=== PATIENT | male | born 1980 | race American Indian/Alaskan Native ===

== ENCOUNTER 2019-03-25 12:22 | Inpatient (IN) | payer OTHER ==
[~2019-03-25] VITALS: Ht 177.8 cm; Wt 122.0 kg
[2019-03-25] MEDS ORDERED: GLUCOPHAGE500 MG PO (15:56)
[2019-03-25] MEDS ORDERED: VITAMIN D1000 UNIT PO (15:56)
[2019-03-25] MEDS ORDERED: SYNTHROID25 MCG PO (16:14)
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
--- NOTE | 2019-03-25 18:00 | NUR ---
WOUND CULT SENT TO LAB. WISHES TO HOLD ON DINNER AT THIS TIME. ACCUCHECK-200. HUMOLOG INSULIN 3 UNITS SQ GIVEN. KCL PO GIVEN W/O PROBLEMS. BROOKS CATH PATENT WITH MARK URINE NOTE. RECIEVING LR BOLUS.
--- NOTE | 2019-03-25 19:41 | NUR ---
REPORT TO NEXT SHIFT. TURNED TO RIGHT SIDE.
--- NOTE | 2019-03-25 20:00 | NUR ---
SHIFT REPORT RECEIVED FROM RYAN HDZ. PT IS CURRENTLY RESTING IN BED AND WATCHING TV. PT IS PARAPLEGIC WITH MINIMAL USE OF UPPER EXTREMITIES, THEREFORE BABY MONITOR IS NEXT TO BED SO THAT PT CAN SPEAK TO NURSES' STATION SINCE HE IS UNABLE TO PUSH CALL LIGHT. PT DENIES NEEDS AT THIS TIME.
--- NOTE | 2019-03-25 20:45 | NUR ---
CB, NO SLIDING SCALE REQUIRED AT THIS TIME. PT FED HIS DINNER OF STEAK, RICE, AND GREEN BEANS, ATE ~90%, TOLERATED WELL.
--- NOTE | 2019-03-25 21:15 | NUR ---
ASSESSMENT COMPLETED. PT HAS ORAL TEMP OF 100.8, PRN TYLENOL PROVIDED. PT DEMONSTRATED I.S. USE. BROOKS CARE COMPLETED, URINE OUTPUT QUANTITY SUFFICIENT. IV SITES WNL, PATENT. OFFERED TO REPOSITION PT, HE DECLINED AT THIS TIME. ALLEVYN DRESSINGS TO WOUNDS ON BUTTOCKS. NO REQUESTS AT THIS TIME.
--- NOTE | 2019-03-25 22:27 | NUR ---
PT REPOSITIONED ONTO LEFT SIDE WITH PILLOW SUPPORT. PT REPORTS FEELING HOT, BLANKETS REMOVED PER REQUEST. ROOM TEMP DECREASED. COOL WASH CLOTH APPLIED TO FOREHEAD AND ICE PACKS PLACED UNDER ARMS. PT PROVIDED WITH DRINK OF ICED TEA. NO FURTHER REQUESTS AT THIS TIME.
--- NOTE | 2019-03-26 00:15 | NUR ---
ASSESSMENT COMPLETED, NO CHANGES FROM PREVIOUS. VANCO INFUSION STARTED. IV SITES INTACT, INFUSING WNL. SNACK PROVIDED PER REQUEST, CRACKERS AND PUDDING. OFFERED TO REPOSITION PT, DECLINED AT THIS TIME AND WILL LET ME KNOW WHEN HE'S READY TO BE MOVED. BROOKS PATENT, URINE APPEARS SLIGHTLY CLOUDY WITH SOME SEDIMENT NOTED. PT EXPRESSES WISHES TO BE STARTED ON PROBIOTIC, WILL LEAVE MESSAGE FOR DR. UNGER, OR SPEAK TO HIM WHEN APPROPRIATE. NO FURTHER REQUESTS AT THIS TIME.
--- NOTE | 2019-03-26 01:07 | NUR ---
PT REPOSITIONED FURTHER ONTO RIGHT SIDE WITH PILLOW SUPPORT. PT READY FOR BED, LIGHTS DIMMED AND HEAD OF BED LOWERED SLIGHTLY. NO FURTHER REQUESTS AT THIS TIME.
--- NOTE | 2019-03-26 03:21 | NUR ---
DR. UNGER NOTIFIED THAT PT'S BP AND UO HAVE BEEN TRENDING DOWN. NO NEW ORDERS RECEIVED AT THIS TIME, WILL CONTINUE TO MONITOR. PT SLEEPING AT THIS TIME, APPEARS COMFORTABLE. RESPIRATIONS EVEN AND UNLABORED, RR:18, HR:75.
--- NOTE | 2019-03-26 04:50 | NUR ---
PT CONTINUES TO SLEEP, DOES NOT APPEAR TO BE IN ANY DISTRESS. RESPIRATIONS EVEN AND UNLABORED, RR:17, HR:79, SPO2:94% ON RA. BROOKS PATENT. IVF INFUSING WNL. WILL ALLOW FOR REST AND CONTINUE TO MONITOR.
--- NOTE | 2019-03-26 05:30 | NUR ---
PT CALLED AND REQUESTED TO BE REPOSITIONED. TURNED ONTO RIGHT SIDE WITH PILLOW SUPPORT. EYE MASK PROVIDED PER REQUEST. WATER REFILLED. NO OTHER REQUESTS AT THIS TIME.
--- NOTE | 2019-03-26 07:08 | NUR ---
DR. HODGE IN TO ASSESS PT. PT HAD SMALL AMOUNT OF LIQUID BM PRESENT, SHANAE-CARE PROVIDED. ALLEVYN DRESSINGS REMOVED. NEW ALLEVYN TO RIGHT BUTTOCK. LEFT DECUB WASHED WITH NORMAL SALINE, LIGHTLY PACKED WITH SALINE SOAKED GAUZE AND COVERED WITH GAUZE AND ABD. PT REPOSITIONED BACK ONTO RIGHT SIDE WITH PILLOW SUPPORT PER REQUEST.
--- NOTE | 2019-03-26 08:10 | NUR ---
PT TEMP IS 102.8, TYLENOL 500 MG PO GIVEN. CALLED TO UPDATE ON FEVER, ORDER GIVEN TO DRAW BLOOD CULTURES X2. ORDER PLACED WITH LAB.
--- NOTE | 2019-03-26 09:01 | NUR ---
IV SITES INTACT, NO REDNESS OR SWELLING NOTED, PT DENIES PAIN AT EITHER SITE, BOTH SITES FLUSH EASILY.
--- NOTE | 2019-03-26 10:07 | NUR ---
PT REPOSITIONED FOR BOWEL REGIME, SUPPOSITORY GIVEN. PT DENIES PAIN, NAUSEA, AND SOB AT THIS TIME. PT ABLE TO HELP SOME WITH REPOSITIONING. PT IS CHEERFUL, ALERT AND ORIENTED. PT DENIES NEED FOR BREAKFAST AT THIS TIME. PT GIVEN SIPS OF FRESH WATER. PT POSITIONED HIGH ON HIS LEFT SIDE PER HIS DESIRE.
--- NOTE | 2019-03-26 11:07 | NUR ---
PT ABLE TO HAVE MED SOFT BM. ALL BED LINENS AND CHUCKS CHANGED.
--- NOTE | 2019-03-26 12:14 | NUR ---
PT GIVEN FULL BED BATH, HAIR SHAMPOOED, BROOKS CATH CARES DONE. CLEAN GOWN IN PLACE, SKIN CARE DONE. PT REFUSED ORAL CARE AT THIS TIME.
--- NOTE | 2019-03-26 12:40 | NUR ---
PT ABLE TO ALINA APPROXIMATLY 50% OF HIS LUNCH. PT REQUIRES ASSISTANCE WITH FEEDING. PT REPORTS LOW APPITITE LATELY, STATES IT IS SLOWLY IMPROVING.
--- NOTE | 2019-03-26 13:22 | NUR ---
IV SITES INTACT, NO REDNESS OR SWELLING NOTED, FLUIDS AND FLUSHES INFUSE EASILY. PT DENIES PAIN, NAUSEA, AND SOB AT THIS TIME, SITTING UP IN BED WATCHING TV.
--- NOTE | 2019-03-26 14:10 | NUR ---
PT REPOSITIONED TO LEFT SIDE PER HIS REQUEST, PILLOWS UNDER BACK, HIPS, AND LEG FOR SUPPORT. PT WATCHING TV AT THIS TIME, ALERT AND ORIENTED X4, DENIES PIAN, NAUSEA, AND SOB.
--- NOTE | 2019-03-26 16:05 | NUR ---
REPORT RECIEVED VIA TELEPHONE.
--- NOTE | 2019-03-26 16:30 | NUR ---
PT ARRIVED TO FLOOR VIA BED. DENEIS PAIN. VSS. AFEBRILE. ORIENTED TO ROOM. LRAT 50ML/HR INFUSING.
--- NOTE | 2019-03-26 16:33 | NUR ---
PT TRANSPORTED TO MED/SURG ROOM 115 WITH ASSISTANCE FROM RYAN ALFARO. ALL PERSONAL BELONGINGS WENT WITH PT, INCLUDING MOTORIZED WHEELCHAIR. FULL REPORT GIVEN TO ANGELINA, ALL QUESTIONS ANSWERED.
--- NOTE | 2019-03-26 16:45 | NUR ---
PT WITH SMALL BM. CHUCKS CHANGED. REPOSITIONS PT TO RIGHT SIDE. WITH 2 PILLOWS UNDER LEFT HIP AND LEFT SHOULDER. PILLOW PLACED BETWEEN LEGS. HEEL PROTECTORS IN PLACE. ALLYVEN TO LEFT GLUTEAL WOUND INTACT WITH SOME SHADOWING. RIGHT GLUTEAL ULCER OPEN TO AIR WITH NO DRAINAGE. SKIN FOLDS ON BODY DRY WITHOUT REDNESS. VOICE MONITOR IN PLACE. DENIES FURTHER NEEDS.
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
--- NOTE | 2019-03-26 19:30 | NUR ---
REPORT RECEIVED, PT RESTING IN BED VISITING WITH FAMILY NO NEEDS AT THIS TIME. VOICE MONITOR IN ROOM.
--- NOTE | 2019-03-26 20:34 | NUR ---
PT'S MOM BROUGHT THE PT THE FOLLOWING PERSONAL ITEMS: CELL PHONE, CELL PHONE CLIENT TECHNICAL SUPPORT ASSOCIATE, AND COMPUTER TABLET.
--- NOTE | 2019-03-26 21:00 | NUR ---
PT REPOSITIONED IN BED, NYSTATIN PLACED UNDER PT'S PANNUS WELL. EVENING MEDS GIVEN. ASSESSMENT COMPLETE. PULSES EQUAL, PT'S LS CLEAR, BT ACTIVE, BROOKS CATH DRAINING WNL. PT DENIES ANY PAIN. DENIES ANY NEEDS AT THIS TIME. MONITOR IN ROOM DUE TO PT'S INABILTY TO USE CALL LIGHT.
--- NOTE | 2019-03-26 22:59 | NUR ---
PT WAS ASSISTED WITH CHICKEN NOODLE SOUP BY CANELO MATA, PT TOLERATED WELL. PT REPOSITIONED IN BED, FLOATED, PT TOLERATED WELL. ALLEVYN ON RIGHT HIP IS INTACT, OPEN SORE ON LEFT HIP DOES NOT APPEAR TO HAVE ANY NEW DRAINAGE. PT WAS NOTED TO BE INCONTINENT OF SMALL STOOL CHUX CHANGED, IV ABX INFUSING PER EMAR WNL. NO FURTHER REQUESTS AT THIS TIME. CALL LIGHT WITHIN REACH.
--- NOTE | 2019-03-27 01:10 | NUR ---
PT STATES THAT HE IS READY FOR BED, PT REPOSITIONED IN BED PER PT'S REQUEST, PT'S CHUX ARE DRY, IV FLUIDS INFUSING PER EMAR WNL. NO FURTHER NEEDS AT THIS TIME, CALL LIGHT WITHIN REACH.
--- NOTE | 2019-03-27 03:00 | NUR ---
PT REPOSITIONED IN BED PER REQUEST, ICE PACKS PROVIDED FOR BEHIND NECK WELL. NO FURTHER NEEDS AT THIS TIME. IV FLUIDS INFUSING PER EMAR WNL. VOICE MONITOR IN ROOM WITH PT.
--- NOTE | 2019-03-27 04:00 | NUR ---
IV VANCO STARTED, PT REPOSITIONED IN BED, ICE PACKS GIVEN FOR COMFORT TO PT'S NECK, PT WAS INCONTINENT OF SMALL STOOL. CHUX CHANGED, NO FURTHER NEEDS AT THIS TIME, VOICE MONITOR IN ROOM.
--- NOTE | 2019-03-27 04:57 | NUR ---
PT AOX4, APPROPRIATE, NO C/O PAIN, PT IS QUADRAPLEGIC, Q2 TURNING, PT INCONTINENT OF STOOL, BROOKS CATH DRAINING WNL. VOICE MONITOR AT NURSES STATION DUE TO PT'S INABILITY TO USE CALL LIGHT. PT HAS BEEN NPO SINCE MIDNIGHT, SCHEDULED SURGERY THIS AM, IV ABX/FLUIDS INFUSED PER EMAR WNL. HEEL PROTECTORS ON.
--- NOTE | 2019-03-27 07:27 | NUR ---
REPORT RECEIVED FROM INSTRUMENT FITTER RN. PT IN BED. VOICE MONITOR AT BEDSIDE.
--- NOTE | 2019-03-27 08:09 | NUR ---
PATIENT RESTING IN BED. PATIENT'S BODY CLEANED WITH SURGICAL WIPES. TWO PERSON ASSISTING. PATIENT USING A CLEAN GOWN. WARM BLANKET PROVIDED. PATIENT REPOSITIONED. CALL LIGHT WITHIN REACH. NO OTHER NEEDS AT THIS TIME
--- NOTE | 2019-03-27 08:16 | NUR ---
REPOSITIONED PT. ABD APPLIED TO LEFT GLUTEAL ULCER.
--- NOTE | 2019-03-27 09:26 | NUR ---
PATIENT RESTING IN BED. I&O DONE. VITAL SIGNS DONE BY RN. CALL LIGHT WITHIN REACH. NO OTHER NEEDS AT THIS TIME
--- NOTE | 2019-03-27 09:39 | NUR ---
PT OFF FLOOR TO SURGERY
--- NOTE | 2019-03-27 09:50 | NUR ---
IV IN R HAND LEAKING AND WONT RUN VERY WELL. DCD AND RESTARTED.
--- NOTE | 2019-03-27 11:22 | NUR ---
03/27/19 1122 Linda Ba 1104- PT ARRIVES TO PACU ALERT AND ORIENTED. RESP EVEN AND UNLABORED. OXYGEN SAT HIGH 90'S TO 100% ON RA. PT REPORTS NO PAIN OR NAUSEA. 1116- PT TURNED TO HIS LEFT SIDE AND PILLOW PLACED UNDER RIGHT HIP WITH ASSISTANCE FROM 3 STAFF MEMBERS. PT TOLERATING WELL.
--- NOTE | 2019-03-27 11:30 | NUR ---
PT ARRIVED VIA BED.PT IS AAO X4. DENIES PAIN. DRESSINGS TO LEFT GLUTEAL WITH ABD C/D/I. RIGHT GLUTEAL ALLYVEN C/D/I. VSS. HEART SOUNDS REGULAR. LUNGS CLEAR.
--- NOTE | 2019-03-27 13:40 | NUR ---
PATIENT IN BED WATCHING TV. I&O DONE. VITAL SIGNS DONE BY THE PRODUCTION TRAINER LESLIE. CALL LIGHT WITHIN REACH. NO OTHER NEEDS AT THIS TIME
--- NOTE | 2019-03-27 14:32 | NUR ---
SPOKE WITH PATIENT IN ROOM. PLAN IS STILL TO RETURN HOME AT DISCHARGE. AT THIS TIME PATIENT WANTS TO RESUME HOME HEALTH THROUGH [facility]. ONLY THING PATIENT CAN THINK OF HE COULD USE TO BE HOME SAFELY IS A DUAL CHAMBER CUSHION FOR HIS POWER CHAIR. HE BELIEVE HIS WOUNDS CAME AFTER HE SWITCHED FROM DUAL CUSHION TO SINGLE CUSHION. I DISCUSSED THAT I WILL LET MD AND HOME HEALTH KNOW OF THIS REQUEST. NO OTHER REQUESTS AT THIS TIME. HE STATES HIS MOM WILL COME WITH THEIR VAN FOR DISCHARGE HOME. DISCUSSED AT LENGTH TO MAKE SURE HE UNDERSTANDS ALL MEDICATIONS, DIAGNOSIS AND WHAT HE NEEDS TO DO TO CONTINUE ON IMPROVED HEALTH AT HOME. HE WANTS TO RESUME HOME HEALTH AND WORKING WITH HIS COMMUNITY HEALTH NURSE THROUGH [facility]. HE FEELS HE HAS EVERYTHING ELSE WELL IN PLACE AT THIS TIME.
--- NOTE | 2019-03-27 15:40 | NUR ---
PT WITH MED BM. DRESSING TO LEFT GLUTEAL WOUND CHANGED. SALINE SOAKED GAUZE PACKED IN WOUND. ABD AND TAPE PLACED OVER TOP. ALLYEN CHANGED TO RIGHT GLUTEAL WOUND. BOTH CLEANED WITH WOUND GAME ADVISOR. WOUND BED RED, SOME SEROSANG DRAINAGE PRESENT. PT REPOSITIONED. TO LEFT SIDE. PERSONAL ITEMS WITHIN REACH. VOICE MONITOR AT BEDSIDE.
--- NOTE | 2019-03-27 16:45 | NUR ---
PATIENT RESTING IN BED. RN IN ROOM. PATIENT CLEANED. CATHETER CARE DONE. PATIENT REPOSITONED. TWO PERSON ASSISTING. CALL LIGHT WITHIN REACH. NO OTHER NEEDS AT THIS TIME
[2019-03-27] MEDS ORDERED: MULTI VITAMIN1 EACH PO (17:23)
[2019-03-27] MEDS ORDERED: PROBIOTIC1 EAC7 PO (17:25)
--- NOTE | 2019-03-27 17:26 | NUR ---
Medications reconciled with patient
--- NOTE | 2019-03-27 17:59 | NUR ---
PATIENT SITTING UP IN BED. PATIENT FED. VITAL SIGNS AND I&O DONE. CALL LIGHT WITHIN REACH. NO OTHER NEEDS AT THIS TIME
--- NOTE | 2019-03-27 20:10 | NUR ---
PATIENT REPOSITIONED TO THE RIGHT SIDE WITH HELP OF ADOLFO LEMOS. PATIENT HAVING NO PAIN AND HAS NO OTHER NEEDS AT THIS TIME.
--- NOTE | 2019-03-27 20:37 | NUR ---
QT 3 hr 8 30 pm.
--- NOTE | 2019-03-27 22:11 | NUR ---
CHARGE NURSE ROUNDING NOTE: PT AWAKE, WATCHING TV, NO C/O PAIN.ON ROOM AIR. PT REQUESTS TO BE TURNED Q3H. F/C CHRONIC IN PLACE. PT UNABLE TO USE CALL LIGTH, BABY MONITOR INROOM AND AT NURSES STATION. FRESH WATER GIVEN.
--- NOTE | 2019-03-27 23:14 | NUR ---
PATIENT STILL AWAKE WORKING ON HIS COMPUTER. PATIENT READJUSTED TO HIS LEFT SIDE WITH HELP OF ADOLFO LEMOS. NO INCONTINENCE OF STOOL AND NO CO OF PAIN.
--- NOTE | 2019-03-28 01:15 | NUR ---
PATIENT CONTINUES TO REMAIN AWAKE AND WATCH TVA ND WORK ON HIS TABLET.NO NEEDS AT THIS TIME.
--- NOTE | 2019-03-28 02:45 | NUR ---
PATIENT STILL AWAKE POSITIONED TO THE RT SIDE AND TO POSITION OF COMFORT. GIVEN A DRINK OF WATER AND SOME SWEATING LINEN CHANGED. PATIENT HAD NO OTHER NEEDS AT THIS TIME.
--- NOTE | 2019-03-28 05:20 | NUR ---
PATIENT'S DECUB DRESSING WERE CHANGED. THE LEFT SIDED ONE PACKED WITH STERILE SALINE GAUZE THEN TAPED OVER WITH STERILE ABD. RIGHT ALLYVEN ALSO CHANGE PATIENT HAD A LARGE LIQUID STOOL AND LINENS WERE CHANGED. PATIENT TOLERATED THIS WELL AND IS RETURNING TO SLEEP. AM MEDS GIVEN AND AND PATIENTSAID HE SLEPT WELL THE SECOND HALF OF THE NIGHT HE WAS WATCHING TV AND ON HIS TABLET.WOUNDS LOOKED GOOD AND CLEAN.
--- NOTE | 2019-03-28 07:31 | NUR ---
REPORT RECEIVED FROM FISCAL MANAGER RN. PT IN BED WITH MASK IN PLACE. RESPIRATOINS EQUAL AND NONLABORED. LR AT 50 INFUSING. VOICE MONITOR IN PLACE.
--- NOTE | 2019-03-28 09:34 | NUR ---
REPOSITIONED PT TO BACK.
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
--- NOTE | 2019-03-28 11:00 | NUR ---
BED BATH PROVIDED. DRESSING CHANGE TO LEFT GLUTEAL WOUND. PT WITH SMALL BM. TOLERATED WELL.
--- NOTE | 2019-03-28 11:03 | NUR ---
THE NURSE AND I GAVE HIM A BED BATH. CHANGED HIS GOWN. STRAIGHTEN UP HIS ROOM OPENED UP HIS BLINDS. GAVE HIM HIS IPAD ALSO PLUG IN HIS PHONE IT IS CHARGING NOW.
[2019-03-28] MEDS ORDERED: GLUCOPHAGE500 MG PO (11:55)
--- NOTE | 2019-03-28 11:56 | NUR ---
ROUNDED WITH DR UNGER. PLAN OF CARE DISCUSSED.
[2019-03-28] MEDS ORDERED: AMOX TR-K CLV1 EAC1 PO (11:57)
--- NOTE | 2019-03-28 15:30 | NUR ---
HELPED THE NURSE GET PATIENT DRESSED AND DWAYNE HIM TO HIS WHEELCHAIR. BEFORE PATIENT DISCHARGED.
--- NOTE | 2019-03-30 12:10 | NUR ---
RECEIVED MESSAGE FROM [facility] REGARDING THAT THEY ARE LOOKING FOR RESUMPTION OF HOME HEALTH ORDERS FOR PATIENT HE WAS DISCHARGED OVER WEEKEND. CALLED DR UNGER AT CLINIC OFFICE, HE STATES TO GO AHEAD AND ORDER TO RESUME PREVIOUS HOME HEALTH ORDERS. THIS ORDER WAS PLACED AND CLINICALS AND ORDERS FAXED TO [facility] [phone]. FAX CONFIRMATION RECEIVED 03/30/19 1235PM.
== END 2019-03-28 15:25 | disposition home or self-care (01) | DRG 853 ==
LOC: ED 12:22 → MS 16:25 → CCU 16:25 → MS 03-26 16:30
PROVIDERS: Colon & Rectal Surgery; ADMIT Internal Medicine
PROC: 0JB90ZZ Excision of Buttock Subcutaneous Tissue and Fascia, Open Approach (ICD-10-PCS; principal; 2019-03-27 09:30)
DX: A41.81 Sepsis due to Enterococcus (principal); L89.323 Pressure ulcer of left buttock, stage 3; G82.50 Quadriplegia, unspecified; T83.511A Infection and inflammatory reaction due to indwelling urethral catheter, initial encounter; N39.0 Urinary tract infection, site not specified; A41.59 Other Gram-negative sepsis; S14.104S Unspecified injury at C4 level of cervical spinal cord, sequela; E11.65 Type 2 diabetes mellitus with hyperglycemia; L08.9 Local infection of the skin and subcutaneous tissue, unspecified; D50.9 Iron deficiency anemia, unspecified; E03.9 Hypothyroidism, unspecified; N31.9 Neuromuscular dysfunction of bladder, unspecified; E66.9 Obesity, unspecified; K59.09 Other constipation; R82.71 Bacteriuria; E27.8 Other specified disorders of adrenal gland; L89.312 Pressure ulcer of right buttock, stage 2; V89.2XXS Person injured in unspecified motor-vehicle accident, traffic, sequela; Z79.84 Long term (current) use of oral hypoglycemic drugs; Z79.899 Other long term (current) drug therapy; Z68.38 Body mass index [BMI] 38.0-38.9, adult
CPT/HCPCS: 00400; 36415; 71045; 74177; 80048; 80053; 80202; 81001; 82607; 82728; 82746; 83036; 83540; 83605; 83735; 84466; 85025; 85045; 87077; 87088; 87186; 99285-25; J0696; J1650; J1815; J2250; J2704; J3370; J3480; J7040; J7050; J7060; J7120; Q9967

== ENCOUNTER 2020-02-17 06:00 | Day surgery (SDC) | payer OTHER ==
[~2020-02-17] VITALS: Ht 177.8 cm; Wt 106.6 kg
[~2020-02-17 06:00] MED LIST: AMOX TR-K CLV1 EAC1 PO; GLUCOPHAGE500 MG PO; MULTI VITAMIN1 EACH PO; PROBIOTIC1 EAC7 PO; SYNTHROID25 MCG PO; VITAMIN D1000 UNIT PO
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
== END 2020-02-17 10:50 | disposition home or self-care (01) ==
LOC: DS 06:00
PROVIDERS: Colon & Rectal Surgery
PROC: 0QB20ZZ Excision of Right Pelvic Bone, Open Approach (ICD-10-PCS; 2020-02-17)
PROC: 0QB30ZZ Excision of Left Pelvic Bone, Open Approach (ICD-10-PCS; principal; 2020-02-17 06:45)
DX: L89.224 Pressure ulcer of left hip, stage 4 (principal); L89.214 Pressure ulcer of right hip, stage 4; G82.50 Quadriplegia, unspecified; E03.9 Hypothyroidism, unspecified; E11.9 Type 2 diabetes mellitus without complications; G47.33 Obstructive sleep apnea (adult) (pediatric); Z99.3 Dependence on wheelchair; Z88.1 Allergy status to other antibiotic agents; Z79.899 Other long term (current) drug therapy; Z93.3 Colostomy status; Z98.890 Other specified postprocedural states
CPT/HCPCS: J0330; J0690; J1100; J1644; J1885; J2250; J2405; J2704; J2765; J3010; J7121

== ENCOUNTER 2021-02-27 07:10 | Day surgery (SDC) | payer OTHER ==
[~2021-02-27] VITALS: Ht 177.8 cm; Wt 104.5 kg
[~2021-02-27 07:10] MED LIST changes: +CIPRO500 MG PO
--- NOTE | 2021-02-27 11:00 | NUR ---
02/27/21 1100 Sofi Osei 1053: PT ARRIVES TO PACU VIA STRETCHER FOR RECOVERY. ASLEEP, BUT REACTS TO VERBAL STIMULI. VSS, RESP EVEN AND UNLABORED. O2 SATS STABLE >98% ON 6L VIA FACEMASK. CATH DRAINING RED URINE AT THE BEDSIDE. CBG 192
--- NOTE | 2021-02-27 11:53 | NUR ---
1130: PT ARRIVES TO DS TREATMENT ROOM FROM PACU AWAKE AND ALERT. PT DENIES NAUSEA OR PAIN AT THIS TIME. PT TAKES SMALL SIPS OF WATER PROVIDED BY THIS RN. 1145: PT FED APPLE SAUCE, TOLERATES WITH NO NAUSEA. CALL LIGHT WITHIN REACH, BUT PT UNSURE IF HE CAN PRESS THE CALL BUTTON. TV TURNED ON PER PT REQUEST, DOOR LEFT OPEN WILL CONTINUE TO MONITOR.
--- NOTE | 2021-02-27 12:48 | NUR ---
1245 PT RESTING COMFORTABLEY, HIS MOM IS AT BEDSIDE. URINE IN CATH TUBE LOOKS TINGED WITH BLOOD BUT NO CLOTS ARE SEEN.
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
--- NOTE | 2021-02-27 14:16 | NUR ---
[id number]: PT CONT TO REST IN BED WITH NO COMPLAINTS OF NAUSEA OR PAIN. DC CRITERIA MET AT THIS TIME, DC INSTRUCTIONS PRESENTED TO PT AND MOTHER WITH NO QUESTIONS ASKED. PT WOULD LIKE EXTRA IRRIGATION SUPPLIED. THIS RN AND ROMAIN MEHTA RN DRESS PT AND TRANSFER PT FROM STETCHER TO PERSONAL MOTORIZED CHAIR WITH USE OF DWAYNE. PT STRAPPED IN TO CHAIR AND IS ABLE TO CONTROL CHAIR TO MOTHER WAITING AT HOSPITAL ENTRANCE TO HOME. PT HAS GRAVITY BAG IN PLACE, DENIES LEG BAG WHEN OFFERED.
== END 2021-02-27 13:25 | disposition home or self-care (01) ==
LOC: DS 07:10
PROVIDERS: ATTEND Urology
PROC: 0T9B80Z Drainage of Bladder with Drainage Device, Via Natural or Artificial Opening Endoscopic (ICD-10-PCS; principal; 2021-02-27 08:15)
DX: N31.9 Neuromuscular dysfunction of bladder, unspecified (principal); R33.9 Retention of urine, unspecified; T83.091A Other mechanical complication of indwelling urethral catheter, initial encounter; I69.369 Other paralytic syndrome following cerebral infarction affecting unspecified side; G82.50 Quadriplegia, unspecified; E03.9 Hypothyroidism, unspecified; E11.9 Type 2 diabetes mellitus without complications; Y73.8 Miscellaneous gastroenterology and urology devices associated with adverse incidents, not elsewhere classified; Z98.1 Arthrodesis status
CPT/HCPCS: J0690; J1580; J2001; J2405; J2704; J3010; J7121

== ENCOUNTER 2021-12-14 15:38 | Inpatient (IN) | payer OTHER ==
[~2021-12-14] VITALS: Ht 177.8 cm; Wt 113.9 kg
--- NOTE | 2021-12-14 17:00 | NUR ---
ER CALLED FOR WOUND CARE CONSULT. DRESSING TO 2 GLUTEAL FOLD WOUNDS DC'D. WOUND WITH STRONG FOUL ODOR. COUPIOUS AMOUNTS OF PURULENT DRAIANGE PRESENT. RIGHT GLUTEAL FOLD WOUND: STAGE 4. BONE EXPOSURE PRESENT. PICUTES TAKEN. NO MEASUREMENTS ASSESSED. WOUND BED RED, PERIWOUND BLANCHABLE. EDGES JAGGED AND CURLED. WOUND CLEANSED WITH WOUND CLEANSER, PACKED WITH MOIST GAUZE AND COVERED WITH HYDROCOLLOID. LEFT GLUTEAL FOLD WOUND. STAGE 3. PICTURES TAKEN. NO MEASUREMENTS ASSESSED, WOUND BED WITH 80% RED TISSUE AND 10% SLOUGH PRESENT. PERIWOUND BLANCHABLE, EDGEDS JAGGED AND CURLED IN. CLEANED WITH WOUND CLEANSER, PACKED WITH MOIST GAUZE AND COVERED WITH HYDROCOLLOID. PT TOLERATED WELL. RECOMMENDED TO CONSULT HOT ROOM ATTENDANT SURGEON DR HODGE FOR POSSIBLE NEED FOR DEBRIDEMENT OR RECOMMENDATIONS.
[2021-12-14] MEDS ORDERED: OXYBUTYNIN CHLO10 MG PO (22:33)
--- NOTE | 2021-12-14 23:30 | NUR ---
PT ARRIVED FROM ED ALERT AND ORIENTED. TRANSFERRED FROM STRETCHER TO BED WITH 4 PERSONS. VS TAKEN. REQUESTED TYLENOL FOR NECK PAIN. ORDER OBTAINED. IVF INITIATED.
--- NOTE | 2021-12-15 01:35 | NUR ---
PILLOW REMOVED FROM LEFT SIDE. REMOVED BLANKETS PER PT REQUEST. PT STATES NECK PAIN RESOLVED.
[2021-12-15] MEDS ORDERED: MELATONIN10 M2 PO (02:10)
--- NOTE | 2021-12-15 02:44 | NUR ---
PT REQUESTS ICE PACK FOR NECK AND COOL WASHCLOTH FOR FOREHEAD. DENIES ANY OTHER NEEDS.
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
--- NOTE | 2021-12-15 08:24 | NUR ---
Patient awake, alert and oriented x4. Patient denies pain this morning. Repositioned patient to inspect sacral wound; Hydrocolloid dressing intact-moderate amount of purulent drainage noted. Disposable peggy pad changed. Dressing remains intact. Positioned patient to right lateral side facing window. Patient denies needs. Call light within reach. Patient reports he is able to call staff for help if he has needs.
[2021-12-15] MEDS ORDERED: CERTAVITE-ANTI1 EACH PO (08:28)
--- NOTE | 2021-12-15 09:54 | NUR ---
PT IN ROOM WITH DAUGHTER. WENT OVER DISCHARGE EDUCATION WITH FAMILY ALONGSIDE RN. HER IV TAKEN OUT. SHE WAS ABLE TO VOID BEFORE GOING OUT. HER VS CHARTED. READY AND AWAITING FOR VAN RIDE HOME.
--- NOTE | 2021-12-15 10:52 | NUR ---
WENT INTO ROOM TO REPOSITION PT AND TAKE VS. HE WAS STILL ASLEEP BUT IS NOW AWAKE. DENIES ANY PAIN. FC OUTPUT OF 400 ML. COMFORTABLE ON BED WITH SAFETY MEASURES IN PLACE.
--- NOTE | 2021-12-15 11:11 | NUR ---
PT IS DIABETIC. BLOOD SUGAR ELEVATED WITH MORNING LABS. DR HODGE CALLED NOTIFIED. TELEPHONE ORDER RECEIVED TO PLACE PT ON Q6 BOOD SUGARS AND SLIDING SCALE MODERATE WITH REGULAR INSULIN. READ BACK FOR VERIFICATION. ORDERS PLACED AND PRIMARY NURSE NOTIFIED.
--- NOTE | 2021-12-15 11:21 | NUR ---
MED REC COMPLETE
--- NOTE | 2021-12-15 13:28 | NUR ---
PT AWAKE ON BED AND WATCHING TV. NO COMPLAINTS MADE BY PT. VS TAKEN AND CHARTED. CURRENTLY HAS AN OUTPUT OF 75 ML IN BAG. HIS IVF STILL INFUSING WELL. SAFETY MEASURES IN PLACE.
--- NOTE | 2021-12-15 15:02 | NUR ---
IN ROOM TO ASSESS PATIENT, PATIENT LAYING IN BED WATCHING TV. PATIENT IS QUADRIPLEGIC AND HERE WITH WOUND RELATED TO HIS CONDITION. PATIENT STATES HE LIVE AT HOME WITH HIS MOTHER MARIE, HAS HIRED CAREGIVERS WHO ASSIST WITH HIS CARE AND RECVS MULTIPLE WEEKLY VISITS FROM [facility]. PATIENT HAS A POWERCHAIR, BUT HAS RECENTLY HAD TO HAVE IT FIXED. PATIENT TELLS ME THAT HE HAS BEEN WORKING WITH [employer] TO OBTAIN A TURN ASSIST MATTRESS TO HELP PREVENT BREAKDOWN IN THE FUTURE. ALL DEMOGRAPHIC INFORMATION REVIEWED. PATIENT STATES HE HAS NO NEEDS OR CONCERNS ABOUT DISCHARGE AT THIS TIME. PER ANGELINA RIBBON LAP MACHINE TENDER PATIENT WILL NEED A WOUND VAC FOR DISCHARGE. OUTPATIENT WOULD VAC GIVEN TO ANGELINA AND PAPERWORK COMPLETED.
--- NOTE | 2021-12-15 15:03 | NUR ---
Sadaf from [facility] advised that patient should be on a 75g carb-double protein portions with ensures each meal. Order placed as diet can be advanced per DR. Arreguin's order.
--- NOTE | 2021-12-15 17:00 | NUR ---
WOUND NURSE CONSULT. DR HODGE REQUESTED CONSULT FOR WOUND VAC PLACEMENT. LEFT ISCHIAL TUBEROSITY; STAGE 4 PRESSURE WOUND: SIZE 4X3X3. TISSUE BED RED WITH 90% NON-GRANULATING TISSUEA AND 10% BONE. EDGES ARE CURLED AND JAGGED. FOUL ODOR HAS DEMINISHED. RIGHT ISCHIAL TUBEROSITY; STAGE 4 PRESSURE: SIZE 3X4X4. TISSUE BE WITH 90% RED NON-GRANULATING TISSUE AND 10% BONE. EDGES AND CURLED AND JAGGED. FOUL ODOR DEMINISHED. FOAM CUT TO COVER ALL OPEN WOUND TISSUE FOR BOTH WOUNDS. A FOAM BRIDGE WAS PLACED BETWEEN WOUNDS THEN OUT TO SIDE OF HIP WHERE CONNECTION TO WOUND VAC WAS CONNECTED. PT TOLERATED WITH NO PAIN. NO AIR LEAKS PRESENT.
--- NOTE | 2021-12-15 19:31 | NUR ---
Received report from hemant Huang.
--- NOTE | 2021-12-15 21:00 | NUR ---
PT HAD A SNACK. PT WOULD LIKE MELATONIN FOR SLEEP. TAKES NIGHTLY. PHYSICIAN CALLED AND OREDER RECEIVED. DENIES ANY OTHER NEEDS.
--- NOTE | 2021-12-15 23:30 | NUR ---
IN WITH RN TO REPOSTION PT, PILLOWS UNDER THE RIGHT SIDE, SIPS OF WATER PROVIDED AT THIS TIME
--- NOTE | 2021-12-16 02:00 | NUR ---
IN TO ASSIST PT WITH SIPS OF WATER, ICE PACK FOR BEHIND HIS NECK, COOL WASHCLOTH ON FOREHEAD, NO FURTHER NEEDS AT THIS TIME
--- NOTE | 2021-12-16 02:55 | NUR ---
PT REQUESING WASHCLOSH REFRESHED, SIPS OF WATER PROVIDED, PT ALSO READY TO REPOSITION, PILLOWS NOW UNDER THE LEFT SIDE, NO FURTHER NEEDS AT THIS TIME
--- NOTE | 2021-12-16 03:15 | NUR ---
IN TO PROVIDE PT WITH ICE PACKS, RM TEMP LOWERED FOR PTs PREFERANCE, COVERED COMPLETELY REMOVED FOR PT, NO FURTHER NEEDS AT THIS TIME
--- NOTE | 2021-12-16 04:30 | NUR ---
PT REPOSITIONED Q 2 HRS AND PRN. STATES HE SLEPT WELL FOR ABOUT 4 HOURS AND HAS BEEN DOZING OFF AND ON SINCE. WOUND VAC PATENT. ANTIBIOTICS INFUSING WITHOUT ISSUE.
--- NOTE | 2021-12-16 04:30 | NUR ---
IN TO GET VITALS, HELP PT REPOSITION ONTO BACKSIDE (no pillows), SUBRAPUBIC CATH. EMPTIED, SIPS OF WATER GIVEN AND ICE WATER REFILLED, NO FURTHER NEEDS AT THIS TIME
--- NOTE | 2021-12-16 08:00 | NUR ---
REPORT RECIEVED FROM NIGHT RN AND PT. CARE RESUMED. PT IS ALERT AND ORIENTED TO ALL. HE DENIES PAIN. PT. ASSISTED WITH REPOSITIONING BY TWO STAFF. WOUND VAC DRESSING INTACT, CONNECTED TO WALL SUCTION AT 120 AND SMALL AMOUNT OF DRAINAGE PRESENT ON CHUX, WHICH WAS CHANGED. CATH CARE PERFORMED. IV WNL AND FLUSHES. PT. HAS TRACE EDEMA BLE. DISCUSSED MEDS, POC, SKIN CARE. ASSISTED WITH FEEDING. LEFT RESTING WITH CALL LIGHT IN REACH.
--- NOTE | 2021-12-16 09:28 | CONS ---
[facility] [address], [place] [address] Signed DATE OF CONSULTATION: 12/15/2021 CHIEF COMPLAINT: Bilateral ischial pressure injuries. HISTORY OF PRESENT ILLNESS: Arnol is a 41-year-old obese gentleman, who is now a quadriplegic. He apparently stays at home with his mom. Home health comes several times a week to help him. He has been down to [facility] in [place] with Dr. Anguiano, who has performed muscle flaps over the coccyx as well as the bilateral ischial tuberosities. Unfortunately, he developed pressure injuries over his bilateral ischial tuberosities. It has continued to progress over the last several months. Home Health felt like there was some infection there and it took cultures and it came back with Proteus and Klebsiella. Apparently, there was pus emanating from these wounds. He was therefore brought to the local [facility] critical access [facility] emergency room. We had called around yesterday to see if he could undergo a higher level of care knowing that the pressure injuries go straight to the bone. previous muscle flaps. Unfortunately with the COVID pandemic that was not possible. I was asked to admit him as a general surgeon last evening. We have been operating all morning and I am just getting to him now. I have spoken with his nurse several times throughout the day. I have known Aronl from the past, as well as his mother. Arnol is always very kind and forthcoming. PAST MEDICAL HISTORY: Diabetes, quadriplegia, hypothyroidism, and obesity. PAST SURGICAL HISTORY: Bilateral ischial tuberosity flaps as well as a coccygeal flap by Dr. Anguiano with [facility], left lower quadrant end colostomy [facility] and suprapubic catheter, Dr. Pam Saenz. SOCIAL HISTORY: He does not smoke or drink. His primary care provider is Dr. Nikkie Donald at the [facility]. Brea Mace is his mother at #[phone]. He also has home health care. FAMILY HISTORY: None. REVIEW OF SYSTEMS: I reviewed 10 systems with Arnol today as we were catching up and it seems nothing new since I have seen him in the past. Of course, now he has breakdown of these ischial tuberosities in the muscle flaps. Electronically Signed By: VAUGHN HODGE MD 12/16/21 0928 PATIENT NAME: ARNOL MACE CONSULTATION DATE OF : 78 REPORT #: [id number] PHYSICIAN: VAUGHN HODGE MD PCP: NIKKIE DONALD MD REPORT IS CONFIDENTIAL AND NOT TO BE RELEASED WITHOUT AUTHORIZATION [facility] [address] [place] [id number] Signed ALLERGIES: Cipro causes hives. He was given Zosyn and vancomycin together and developed acute renal failure. He said if he takes them separately, he is fine. MEDICATIONS: Levothyroxine 25 mcg p.o. daily, oxybutynin 10 mg p.o. daily, multivitamin one tablet p.o. daily, and recently discontinued metformin. PHYSICAL EXAMINATION: VITAL SIGNS: Blood pressure 110/67, his heart rate is 92, his respiratory rate 16, his temperature is 98.6. He is 98% on room air, he is 5 feet 10 inches and 113 kg. GENERAL: Arnol is a 41-year-old gentleman, appears healthy and at his stated age. He is a quadriplegic. He can move his left arm around a bit and I suspect he is able to feed himself to some degree. He is alert, awake, and interactive. He does not appear systemically ill or toxic. LUNGS: Generally clear to auscultation bilaterally. HEART: Regular rate and rhythm without murmurs. ABDOMEN: Obese, but soft. He has a left lower quadrant colostomy with stool overlying that area. He has a suprapubic catheter with the help of our nurse, we did roll him up into the left lateral decubitus position and I can see that he has bilateral ischial tuberosity pressure injuries full-thickness straight down to the bone. The nurse did change the dressing just a bit ago, but there was no odor, no pus. I digitally examined the area quite extensively and I can see a little bit of granulation tissue, but nothing really debride. LABORATORY DATA: His white blood count 13.7, hemoglobin 10.7, mean cell volume 77, neutrophils 68, platelets 405. BUN 12 and creatinine 0.85, glucose 226. Liver function tests are negative. Albumin is low at 2.8. COVID test is negative. CRP slightly high at 13. Cultures from the bilateral ischial tuberosities on 12/06/2021, shows Proteus and Klebsiella, both sensitive to ertapenem. RADIOGRAPHIC STUDIES: None. 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 I think at this point, we will continue with the gauze packing and make arrangements for the wound VAC. We will continue him on meropenem 500 mg IV q.6 hours as it is on our the same Proteus and Klebsiella. Since it is Saturday, we are going to have to wait till Saturday for an MRI of his pelvis. He told me he has been to MRI scans of his pelvis previously. He is familiar with this whole process. He has expressed understanding agrees above plan. Electronically Signed By: VAUGHN HODGE MD 12/16/21 0928 PATIENT NAME: ARNOL MACE CONSULTATION DATE OF : 78 REPORT #: [id number] PHYSICIAN: VAUGHN HODGE MD PCP: NIKKIE DONALD MD REPORT IS CONFIDENTIAL AND NOT TO BE RELEASED WITHOUT AUTHORIZATION [address] [address] Signed MD WOLF Umana/FIDEL /[id number] cc: MD Silvio Zambrano MD [facility] Vaughn Hodge MD Copies: NIKKIE DONALD MD, ANDREW L MD ~ Electronically Signed By: VAUGHN HODGE MD 12/16/21 0928 PATIENT NAME: ARNOL MACE CONSULTATION DATE OF : 78 REPORT #: [id number] PHYSICIAN: VAUGHN HDOGE MD PCP: NIKKIE DONALD MD REPORT IS CONFIDENTIAL AND NOT TO BE RELEASED WITHOUT AUTHORIZATION
--- NOTE | 2021-12-16 10:45 | NUR ---
PT. ASSISTED WITH REPOSITIONING AND DRINKING WATER. DENIES FURTHER NEEDS AT THIS TIME.
--- NOTE | 2021-12-16 11:23 | NUR ---
RECORDS REQUEST SENT TO [facility] VIA FAX AT [phone].
--- NOTE | 2021-12-16 14:00 | NUR ---
PT. ASSISTED WITH REPOSITIONING. ASSESSMENT COMPLETED. WOUND VAC DRAIN PATENT AND DRAINING SEROSANGUINOUS FLUID. ASSISTED WITH DRINKING WATER AND READJUSTING PILLOWS. HE IS ABLE TO USE THE CALL LIGHT. LEFT RESTING WITH CALL LIGHT IN REACH.
--- NOTE | 2021-12-16 19:40 | NUR ---
RECEIVED REPORT FROM DAY SHIFT RN. PATIENT IS RESTING IN BED WATCHING TV. PATIENT DENIES ANY NEEDS. CALL LIGHT IN REACH.
--- NOTE | 2021-12-16 21:18 | NUR ---
PATIENT ASSESMENT COMPLETED. VITALS TAKEN AND RECORDED. OSTOMY CHANGED, PEBBLE BM NOTED. BROOKS CHANGED AND BROOKS CARE COMPLETED. PATIENTS WOUND VAC IN PLACE, GOOD SEAL NOTED, WOUND VAC @ 120. PATIENT REPOSITIONED IN BED. HEEL PROTECTORS AND SCDS IN PLACE. PATIENTS SCHEDULED MEDICATIONS GIVEN PER ORDER. PATIENT ASSISTED WITH EATING A SNACK AND SIPS OF WATER PROVIDED. PATIENT DENIES ANY FURTHER NEEDS. CALL LIGHT IN REACH.
--- NOTE | 2021-12-16 23:05 | NUR ---
PATIENT REPOSITIONED. ASSISTED WITH SIPS OF WATER. JOHN MATA REMAINS IN ROOM TO FEED PATIENT A SNACK. NO FURTHER NEEDS NOTED. CALL LIGHT IN REACH.
--- NOTE | 2021-12-17 00:31 | NUR ---
SCHEDULED MELATONIN GIVEN PER PATIENT REQUEST. PATIENT REPOSITIONED IN BED. PATIENT PROVIDED SIPS OF WATER. NO FURTHER NEEDS NOTED. CALL LIGHT IN REACH.
--- NOTE | 2021-12-17 01:50 | NUR ---
PATIENTS SCHEDULED ABX INFUSING PER ORDER. PATIENT RESTING IN EBD WITH EYES CLOSED, RR 18. CALL LIGHT IN REACH.
--- NOTE | 2021-12-17 04:04 | NUR ---
PATIENT REPOSITIONED. PATIENT GIVEN SIPS OF WATER BY JOHN MATA. NO FURTHER NEEDS NOTED. CALL LIGHT IN REACH.
--- NOTE | 2021-12-17 05:18 | NUR ---
PATIENT ABX COMPLETED INFUSING AND IS NOW SL PER ORDER. NO NEEDS NOTED. CALL LIGHT IN REACH.
--- NOTE | 2021-12-17 06:03 | NUR ---
PATIENT ASSESMENT COMPLETED. PATIENTS VITALS TAKEN AND RECORDED. BROOKS EMPTIED AND CATH CARE COMPLETED. OSTOMY EMPTIED. INTAKE AND OUPUT RECORDED. PATIENT REPOSITIONED IN BED. PATIENT HAS SCDS AND HEEL PROTECOTRS IN PLACE. PATIENT PROVIDED SIPS OF WATER. MORNING MEDICATIONS GIVEN PER ORDER. CALL LIGHT IN REACH.
--- NOTE | 2021-12-17 06:05 | NUR ---
PATIENT RESTED WELL SURING THE LATER PART OF THE SHIFT. ADA DIET, TOLERATING WELL, AND NO NAUSEA NOTED. PATIENT IS A TURN Q2. PATIENT DENIED ANY PAIN. PATIENT IS ON RA. PATIENT HAS BROOKS AND OSTOMY. PATIENT HAS WOUND VAC IN PLACE. PATIENT HAS SCDS AND HEEL PROTECTORS IN PLACE. BS CHECKS. AAOX4. PATIENT IS A QUAD. DWAYNE XFER.
--- NOTE | 2021-12-17 08:30 | NUR ---
REPORT RECEIVED FROM NIGHT RN AND PT. CARE RESUMED. PT. IS DROWSY BUT EASILY AWAKENS TO VOICE. ORIENTED TO ALL. PT. REPOSITIONED BY TWO STAFF. WOUND VAC DRESSING LOOSENED ON SCROTUM. ALLEVYN UNDER THE DRESSING SATURATED WITH DRAINAGE. AREA CLEANED AND NEW ALLEVYN APPLIED. DRESSING REINFORCED WITH OPSITE. WOUND VAC SUCTION INTACT AND LIGHT IS GREEN NOW. LUNGS CLEAR THROUGHOUT. HEEL PROTECTORS IN PLACE. IV WNL AND FLUSHES WELL. PT. ASSISTED WITH BREAKFAST AND DRINKING. DISCUSSED MEDS, POC AND SAFETY. LEFT RESTING WITH CALL LIGHT IN REACH.
--- NOTE | 2021-12-17 10:30 | NUR ---
PT. REPOSITIONED BY TWO STAFF. SMALL AMOUNT OF DRIBBLING FROM PENIS. ATTENDS CHANGED AND LEFT OPEN. SHANAE CARE COMPLETED. PT. ASSISTED WITH DRINKING WATER. LEFT RESTING WITH CALL LIGHT IN REACH.
--- NOTE | 2021-12-17 14:30 | NUR ---
PT. ASSISTED WITH REPOSTIONING BY TWO STAFF. OSTOMY BAG EMPTIED OF A LARGE AMOUNT OF FORMED STOOL. ASSISTED WITH DRINKING WATER. LEFT RESTING WITH CALL LIGHT IN REACH.
--- NOTE | 2021-12-17 19:21 | NUR ---
RECEIVED REPORT FO DAY SHIFT RN. PATIENT IS RESTING IN BED WATCHING TV. NO NEEDS NOTED. CALL LIGHT IN REACH.
--- NOTE | 2021-12-17 21:10 | NUR ---
PATIENT ASSESMENT COMPLETED. SCHEDULED MEDICATIONS GIVEN PER ORDER. IV ABX INFUSING PER ORDER. PATIENTS OSTOMY CHANGED-PEBBLE SIZED STOOL NOTED. BROOKS EMPTIED AND BROOKS ACER COMPLETED. PATIENT REPOSITIONED IN BED. SCDS AND HEEL PTOTECTORS IN USE. PATIENT IS ON RA. PATIENT PROVIDED WITH SIPS OF WATER. NO FURTHER NEEDS NOTED. CALL LIGHT IN REACH.
--- NOTE | 2021-12-17 22:55 | NUR ---
PATIENT REPOSITIONED. PATIENT REQUESTS SNACK. SAMRA MATA IN ROOM TO FEED PATIENT SNACK.
--- NOTE | 2021-12-17 23:00 | NUR ---
FRUIT SNACK PROVIDED. FRESH WATER REFILLED. NO OTHER NEEDS AT THIS TIME.
--- NOTE | 2021-12-17 23:49 | NUR ---
PATIENT REPOSITIONED. IV INFUSING ABX PER ORDER. PATIENT GIVEN SHCEDULED MEDICATION PER ORDER. SIPS OF WATER PROVIDED. NO FURTHER NEEDS NOTED. CALL LIGHT IN REACH.
--- NOTE | 2021-12-18 01:57 | NUR ---
SCHEDULED ABX INFUSING PER ORDER. PATIENT REPOSITIONED. PATIENT DENIES ANY FURTHER NEEDS. CALL LIGHT IN REACH.
--- NOTE | 2021-12-18 03:50 | NUR ---
PATIENT REPOSITIONED. NO NEEDS NOTED. CALL LIGHT IN REACH.
--- NOTE | 2021-12-18 05:10 | NUR ---
PATIENT REPOSITIONED IN BED. VITALS TAKEN AND RECORDED. BROOKS EMPTIED AND BROOKS CARE COMPLETED. PATIENTS OSTOMY EMPTIED. INTAKE AND OUTPUT RECORDED. PATIENTS ABX COMPLETED INFUSING. PATIENT IS NOW SL PER ORDER. PATIENTS SCHEDULED MEDICATIONS GIVEN PER ORDED. SIPS OF WATER PROVIDED. NO FURTHER NEEDS NOTED. CALL LIGHT IN REACH.
--- NOTE | 2021-12-18 05:38 | NUR ---
PATIENT RESTED WELL DURING THE LATER PART OF THE SHIFT. ADA DIET, TOLERATING WELL, AND NO NAUSEA NOTED. PATIENT IS A TURN Q2. PATIENT DENIED ANY PAIN. PATIENT IS ON RA. PATIENT HAS BROOKS AND OSTOMY. PATIENT HAS WOUND VAC IN PLACE. PATIENT HAS SCDS AND HEEL PROTECTORS IN PLACE. BS CHECKS. AAOX4. PATIENT IS A QUAD. [facility].
--- NOTE | 2021-12-18 06:59 | NUR ---
REMOVED WOUND VAC WITH MD AT BEDSIDE. WOUND LIGHTLY PACKED WITH SALINE GAUZE.
--- NOTE | 2021-12-18 07:30 | NUR ---
PATIENT RESTING QUIETLY TURNED TO HIS LEFT SIDE. PATIENT'S EYES ARE CLOSED, RESPIRATIONS ARE REGULAR AND EVEN, AND CALL LIGHT IN REACH. PATIENT HAS NO CURRENT CARE NEEDS.
--- NOTE | 2021-12-18 08:25 | NUR ---
PATIENT DENIES ANY PAIN. AM MEDS AND INSULIN GIVEN. PATIENT DOES NOT WANT TO EAT AT THIS TIME AND JUST WANTS TO SLEEP. AM ASSESSMENT COMPLETE. CALL LIGHT IS IN REACH.
--- NOTE | 2021-12-18 09:19 | NUR ---
UR COORDINATOR ARRIVED AND PATIENT DWAYNE LIFTED TO MRI STRETCHER. PATIENT ON THE WAY TO MRI.
--- NOTE | 2021-12-18 10:38 | NUR ---
PATIENT BACK FROM MRI. IV FLUSHED AND HOOKED BACK UP TO CONTINUE ANTIBIOTIC. THIS RN, DUDE RANCH MANAGER, AND RYAN DE LA TORRE HOYERED PATIENT BACK TO BED. ADOLFO DE LA TORRE HELPING PATIENT EAT BREAKFAST. PATIENT HAD NO OTHER CARE NEEDS FOR ME AT THIS TIME. CALL LIGHT IS IN REACH.
--- NOTE | 2021-12-18 10:52 | NUR ---
PATIENT IS EATING A LATE BREAKFAST DUE TO HAVING SCANS THIS MORNING. HE STATES HE DRINKS ENSURE AT HOME. HE DOES NOT WANT TO DRINK MILK, DOES NOT LIKE COFFEE. HE DOESN'T ALWAYS EAT A FULL BREAKFAST AT HOME. HIS BEST MEAL AT HOME IS PROBABLY DINNER. HE WILL EAT SOME PROTEIN AT LUNCH BUT EATS MORE AT DINNER. PATIENT IS IN AGREEMENT WITH DRINKING HIGH PROTEIN ENSURE WITH MEALS ALONG WITH TWICE THE PROTEIN PORTIONS TO HELP MEET HIS ESTIMATED PROTEIN NEEDS OF 106-132 GRAMS PER DAY. WILL CONTINUE TO MONITOR.
--- NOTE | 2021-12-18 11:16 | NUR ---
PER CONVERSATION WITH RYAN ALFARO, WOUND VAC PLACED AT SHIFT CHANGE ON 12/15/01. NO DRESSING CHANGE ORDERS FOUND IN CHART. PER ANGELINA, WOUND VAC TO BE CHANGED Q3D.
--- NOTE | 2021-12-18 11:30 | NUR ---
RYAN ASHRAF FROM WOUND CARE IS HERE AND RYAN ELKINS FROM WOUND CARE IS COMING TO ASSIST IN THE WOUND VAC DRESSING PLACEMENT. PATIENT TURNED AND POSITIONED ON HIS RIGHT SIDE AT HIS REQUEST AND THIS RN ASSISTING IN WOUND VAC PLACEMENT.
--- NOTE | 2021-12-18 13:03 | NUR ---
PATIENT'S WOUND VAC DRESSING FINALLY MAINTAINING SUCTION AT 120mmHG. PATIENT TOLERATED THE PROCEDURE WELL EVEN THOUGH IS TOOK AWHILE. PATIENT IS READY TO EAT LUNCH. ADOLFO DE LA TORRE IN WITH PATIENT. THIS NURSE GAVE NEW ICE WATER. NO OTHER NEEDS FROM THIS RN AT THIS TIME.
--- NOTE | 2021-12-18 13:18 | NUR ---
PATIENT LUNCH TIME INSULIN GIVEN BY THIS RN AND ADOLFO DE LA TORRE IS FEEDING THE PATIENT. PATIENT HAS NO OTHER CARE NEEDS FROM THIS RN AT THIS TIME.
--- NOTE | 2021-12-18 13:32 | NUR ---
PATIENT SITTING UP IN BED WATCHING TV. VITALS AND I&O'S CHARTED. CALL LIGHT IN REACH. NO FURTHER NEEDS AT THIS TIME.
--- NOTE | 2021-12-18 13:33 | NUR ---
OF AM MEETING PATIENT AWAITING MRI. MRI COMPLETED. AWAITING FURTHER DISCHARGE INSTRUCTION FROM DR. HODGE AT THIS TIME
--- NOTE | 2021-12-18 14:52 | NUR ---
THIS RN IN HANGING ANTIBIOTIC, BUT IV HAS INFILTRATED WITH SALINE FLUSH. IV REMOVED INTACT. 2 ATTEMPT TO START ANOTHER IV WERE UNSUCCESSFUL. THIS RN TALKING TO CHARGE NURSE AND RYAN TREVIÑO WILL CALL TO GET A PICC LINE CONSULT.
--- NOTE | 2021-12-18 15:17 | NUR ---
CALL TO DR. HODGE RE: PICC LINE PLACEMENT FOR SUSPECTED OSTEO. OKAY AND ORDERS PLACED, CALL TO SURGERY DEPT TO SEE IF SOMEONE CAN PLACE LINE.
--- NOTE | 2021-12-18 18:00 | NUR ---
PATIENT'S IV CLEARED TO USE AND IV ANTIBIOTIC NOW RUNNING. RYAN TREVIÑO ASSISTING PATIENT IN EATING AT THIS TIME. INSULIN COVERAGE GIVEN FOR HIGH BLOOD SUGAR. PATIENT CURRENTLY TURNED TO HIS LEFT. CALL LIGHT IS IN REACH.
--- NOTE | 2021-12-18 18:20 | NUR ---
PICC LINE PLACEMENT NOTE WAS ASKED TO ATTEMPT A PICC LINE ON THIS PT DUE TO NO IV ACCESS AND PT NEEDING ABX FOR 8-[address] HODGE. PT HAS HAD PICC LINES BEFORE. RISKS AND BENEFITS DISCUSSED AND PT WOULD LIKE TO PROCEDURE. PT GAVE VERBAL CONSENT HE STATES HE IS UNABLE TO SIGN DUE TO HIS HEALTH CONDITIONS. PT'S RIGHT ARM WAS ACCESSED. PT'S RIGHT BRACHIAL AND BASILIC VEINS WERE IDENTIFIED. THE RIGHT BASILIC WAS CHOSEN AND LARGE ENOUGH TO HAVE A 4 FR PICC LINE ACCORDING TO SUSAN LEVY 8. THE BASILIC VEIN WAS ACCESSED ON THE SECOND TRY. DARK RED, NONPULSITILE BLOOD RETURNED. PT TOLERATED THE PROCEDURE WELL. IDENITIFICATION CARD AND INFECTION PREVENTION PAPER PROVIDED TO PT.
--- NOTE | 2021-12-18 18:58 | NUR ---
PATIENT IN BED WATCHING TV. VITALS AND I&O'S CHARTED. CALL LIGHT IN REACH. NO FURTHER NEEDS AT THIS TIME.
--- NOTE | 2021-12-18 19:30 | NUR ---
PATIENT RESTING QUIETLY IN BED WATCHING TV. PATIENT HAS NO CURRENT CARE NEEDS. CALL LIGHT IS IN REACH AND SHIFT REPORT GIVEN TO RYAN GUERRERO.
--- NOTE | 2021-12-18 19:32 | NUR ---
RECEIVED REPORT FROM DAY SHIFT RN. PATIENT IS RESTING IN BED WATCHING TV. PATIENT DENIES ANY NEEDS. CALL LIGHT IN REACH. BED ALARM ON FOR SAFETY.
--- NOTE | 2021-12-18 21:28 | NUR ---
PATIENT ASSESMENT COMPLETED. PATIENTS BEDDING CHANGED. PATIENTS OSTOMY APPLIANCE CHANGED. BROOKS EMPTIED AND BROOKS CARE COMPLETED. ABX INFUSING PER ORDER. PATIENT DENIES ANY PAIN. SCHEUDLED MEDICATIONS GIVEN PER ORDER. PATIENT REPOSITIONED IN BED. WOUND VAC DRESSING C/D/I, GOOD SEAL NOTED, WOUND VAC @12O. SCDS AND HEEL PROTECTORS IN PLACE. PATIENT ASSISTED BY ADOLFO CABRALES TO DRINK BROTH AND WATER. NO FURTHER NEEDS NOTED. CALL LIGHT IN REACH.
--- NOTE | 2021-12-18 23:40 | NUR ---
PATIENTS SCHEDULED MEDICATIONS GIVEN PER ORDER. PATIENT REPOSITIONED IN BED. SIPS OF WATER PROVIDED. NO FURTHER NEEDS NOTED. CALL LIGHT IN REACH.
--- NOTE | 2021-12-19 01:59 | NUR ---
PATIENT REPOSITIONED IN BED. SIPS OF WATER PROVIDED. CALL LIGHT IN REACH.
--- NOTE | 2021-12-19 02:00 | NUR ---
PATIENT REPOSITIONED. NO OTHER NEEDS AT THIS TIME.
--- NOTE | 2021-12-19 02:58 | NUR ---
ABX COMPLETED INFUSING. PICC LINE NOW HEPLOCK PER ORDER. PATIENT IS RESTING IN BED WITH EYES CLSOED, RR16. CALL LIGHT IN REACH.
--- NOTE | 2021-12-19 05:43 | NUR ---
PATIENT REPOSITIONED IN BED. PATIENTS VITALS TAKEN AND RECORDED. FOELY EMPTIED AND BROOKS CARE COMPLETED. OSTOMY EMPTIED. PATIENTS SCHEDULED MEDICATIONS GIVEN PER ORDER. PATIENT PROVIDED SIPS OF WATER. PATIENT DENIES ANY NEEDS. CALL LIGHT IN REACH.
--- NOTE | 2021-12-19 05:43 | NUR ---
PATIENT RESTED WELL DURING THE LATER PART OF THE SHIFT. ADA DIET, TOLERATING WELL, AND NO NAUSEA NOTED. PATIENT IS A TURN Q2. PATIENT DENIED ANY PAIN. PATIENT IS ON RA. PATIENT HAS BROOKS AND OSTOMY. PATIENT HAS WOUND VAC IN PLACE @120. PATIENT HAS SCDS AND HEEL PROTECTORS IN PLACE. BS CHECKS. AAOX4. PATIENT IS A QUAD. DWAYNE XFER. RIGHT UPPER ARM PICC
--- NOTE | 2021-12-19 06:45 | NUR ---
PATIENT REPOSITIONED IN BED. SIPS OF WATER PROVIDED. NO FURTHER NEEDS NOTED. CALL LIGHT IN REACH.
--- NOTE | 2021-12-19 07:30 | NUR ---
PATIENT AWAKE WATCHING TV AND DENIES ANY CARE NEEDS AT THIS TIME. PATIENT HAS AGREED TO LET VENUS THE CLINICAL SERVICES PROFESSIONAL CHANGE OUT HIS SUPRAPUBIC CATH THIS MORNING. REPORT RECEIVED FROM RYAN GUERRERO. CALL LIGHT IS IN REACH.
--- NOTE | 2021-12-19 08:36 | NUR ---
PATIENT DENIES PAIN. VENUS THE [employer] II ASSEMBLER AND HER INSTRUCTOR GIVEING AM MEDS. PATIENT HAS NO CURRRENT CARE NEEDS FOR THIS RN. CALL LIGHT IN REACH.
--- NOTE | 2021-12-19 08:41 | NUR ---
STUDENT NURSE AND NURSE INSTRUCTOR GIVING AM MEDS WITH THIS RN OBSERVING. EQUITY STRUCTURER WILL BE HELPING PATIENT EAT. CALL LIGHT IS IN REACH.
--- NOTE | 2021-12-19 09:26 | NUR ---
PATIENT REPOSITIONED TO HIS RIGHT SIDE, WOUND VAC SUCTION INTACT, AND PATIENT OFFERED AND GIVEN WATER. PICC LINE LOCKED WITH 20MLS NS AND 5MLS HEPLOCK. CALL LIGHT IN REACH AND PATIENT HAS NO OTHER NEEDS AT THIS TIME.
--- NOTE | 2021-12-19 10:30 | NUR ---
PATIENT RESTING QUIETLY IN BED WATCHING TV. PATIENT DENIES ANY CARE NEEDS AT THIS TIME. CALL LIGHT IS IN REACH.
--- NOTE | 2021-12-19 12:00 | NUR ---
Spoke with Cash. Dr. Arreguin in to speak with pt and updated he will be transferred to [facility]. Discussed his needs and he states he has an old [facility] hospital bed, with a thin mattress. He had purchased an APO mattress which he used for 1.5 years. It stopped working and he again developed pressure sores. We discussed sand beds and if it is possible for him to rent one. I gave him the phone number for [employer] in [employer] and name sandbeds for rent on line. Awaiting to hear when a bed will open at [place].
--- NOTE | 2021-12-19 12:29 | NUR ---
FAXED THE FACESHEET TO THE TRANSFER CENTER FOR [facility].
--- NOTE | 2021-12-19 14:44 | NUR ---
OLD SUPRAPUBIC CATHETER CCHANGED OUT FOR NEW 18F 30ML BALLOON CATHETER DONE WITH STERILE TECHNIQUE BY JALEN NURSE INSTRUCTOR AND VENUS PIT RECORDER, WITH THIS RN ASSISTING AND OBSERVING. PATIENT TOLERATED PROCEDURE WELL AND URINE DRAINING FREELY LIGHT YELLOW IN COLOR. PATIENT NEEDED NO OTHER CARE NEEDS AT THIS TIME. CALL LIGHT IN REACH AND BED IN LOW POSITION.
--- NOTE | 2021-12-19 16:40 | NUR ---
PM ASSESSMENT COMPLETE, PATIENT TURNED TO HIS LEFT SIDE. NEW SUPRAPUBIC CATH WORKING WELL. PATIENT DENIES ANY CARE NEEDS AT THIS TIME. CALL LIGHT IS IN REACH.
--- NOTE | 2021-12-19 17:25 | NUR ---
PT AWAKE IN BED WATCHING TV. PT'S MOM IS BRINGING IN DINNER. PT BOOSTED IN BED. NO FURTHER NEEDS AT THIS TIME.
--- NOTE | 2021-12-19 17:52 | NUR ---
1800 IV MEDS HUNG AND PATIENT'S MOTHER IS IN THE ROOM FEEDING THE PATIENT. PATIENT HAS NO CURRENT CARE NEEDS FROM ME. CALL LIGHT IS IN REACH.
--- NOTE | 2021-12-19 18:40 | NUR ---
PATIENT TURNED TO HIS RIGHT SIDE, MOM REMAINS IN ROOM VISITING WITH PATIENT, PATIENT HAS NO CARE NEEDS AT THIS TIME. CALL LIGHT IN REACH.
--- NOTE | 2021-12-19 19:40 | NUR ---
RECEIVED REPORT FORM DAY SHIFT RN. PATIENT IS RESTING IN BED. MOTHER PRESENT AT BEDSIDE. NO QUESTIONS OR NEEDS NOTED. CALL LIGHT IN REACH.L
--- NOTE | 2021-12-19 21:05 | NUR ---
PATIENT ASSESMENT COMPLETED. OSTOMY EMPTIED. BROOKS EMPTIED AND BROOKS CARE COMPLETED. IV ABX INFUSING PER ORDER. PATIENTS SCHEDULED MEDICATIONS GIVEN PER ORDER. PATIENT REPOSITIONED IN BED. SCDS AND HEEL PROTECTORS IN PLACE. PATIENT PROVIDED SIPS OF WATER. PATIENT WOUND VAC IN PLACE, GOOD SEAL NOTED, AND FUCNTIONING @120. PATIENT DENIES ANY FURTHER NEEDS. CALL LIGHT IN REACH.
--- NOTE | 2021-12-19 22:31 | NUR ---
PATIENT ASKED FOR RENE CRACKERS. PROVIDED AND FED AND ICE WATER.
--- NOTE | 2021-12-19 22:53 | NUR ---
CALL LIGHT ANSWERED. WATER PROVIDED. PATIENT WANTS 1 PILLOW ON HIS RIGHT SIDE BE REMOVED IT CAUSED HIM SWEAT. DONE. ROOM TEMP ADJUSTED FROM 71 TO 69 PER PATIENT'S REQUEST. NO OTHER CARE NEEDED AT THIS TIME.
--- NOTE | 2021-12-19 23:27 | NUR ---
PATIENT REPORTS FEELING "SWEATTY AND CLAMMY". PATIENT STATED WHEN THIS HAPPENS MY BROOKS ISNT WORKING OR SOMETHING IS UNDERNEATH ME CAUSING PAIN. PATIENT REPOSITIONED IN BED. PATIENTS ATTEND HSA URINE ON IT, ATTEND CHANGED. PATIENTS CATHETER FOUND TO BE PINCHED. PATIENTS BROOKS IS NOW DRAINING CLEAR YELLOW URINE. SIPS OF WATER PROVIDED. NO FURTHER NEEDS NOTED. CALL LIGHT IN REACH.
--- NOTE | 2021-12-20 00:08 | NUR ---
PATIENT REPOSITIONED IN BED. PATIENTS SCHEDULED ABX INFUSING PER ORDER. SCHEDULED MELATONIN GIVEN PER ORDER. PATIENT DENIES ANY NEEDS. CALL LIGHT IN REACH. SIPS OF WATER PROVIDED.
--- NOTE | 2021-12-20 01:01 | NUR ---
PATIENT REPOSITIONED IN BED. PATIENT DENIES ANY FURTHER NEEDS CALL LIGHT IN REACH.
--- NOTE | 2021-12-20 01:58 | NUR ---
PATIENT IS RESTING IN BED WITH EYES CLOSED, RR 16. CALL LIGHT IN REACH.
--- NOTE | 2021-12-20 03:01 | NUR ---
PATIENT REPOSITIONED. SIPS OF WATER PROVIDED. NO FURTHER NEEDS NOTED. CALL LIGHT IN REACH.
--- NOTE | 2021-12-20 05:44 | NUR ---
PATIENT REPOSITIONED IN BED. PATIENTS VITALS TAKEN AND RECORDED. BROOKS AND OSTOMY EMPTIED. INTAKE AND OUTPUT RECORDED. PATIENT PROVIDED WITH SIPS OF WATER. PATIENTS SCHEDULED MEDICATIONS GIVEN PER ORDER. PATIENT DENIES ANY FURTHER NEEDS CALL LIGHT IN REACH. SCDS AND HEEL PROTECTORS IN PLACE.
--- NOTE | 2021-12-20 05:46 | NUR ---
PATIENT RESTED WELL DURING THE LATER PART OF THE SHIFT. ADA DIET, TOLERATING WELL, AND NO NAUSEA NOTED. PATIENT IS A TURN Q2. PATIENT DENIED ANY PAIN. PATIENT IS ON RA. PATIENT HAS BROOKS AND OSTOMY. PATIENT HAS WOUND VAC IN PLACE @120. PATIENT HAS SCDS AND HEEL PROTECTORS IN PLACE. BS CHECKS. AAOX4. PATIENT IS A QUAD. DWAYNE XFER. RIGHT UPPER ARM PICC, GOOD BLOOD RETURN NOTED.
--- NOTE | 2021-12-20 07:23 | NUR ---
[facility] CALLED FOR AN UPDATE ON WHETHER OR NOT THE PATIENT WAS STILL HERE. I LET HER KNOW THAT THE PATIENT WILL NOT BE DISCHARGING UNTIL HE GOES TO [facility]. SHE THOUGHT HE WOULD BE ON MULTIPLE WAITING LISTS, BUT I INFORMED HER THAT DR. Pierce HIS ORIGINAL DOCTOR WANTS HIM THERE SO HES ONLY ON THEIR WAITING LIST.
--- NOTE | 2021-12-20 08:40 | NUR ---
THIS RN IN PTS ROOM TO GIVE PT MORNING MEDS. PT DROSWY THIS AM. PT STATES THAT HE IS NOT A MORNING PERSON. PT ABLE TO TAKE PILLS AND THEN WANTS TO GO BACK TO SLEEP- THIS WAS ARRANGED FOR PT, PT COOPERATIVE. NO OTHER NEEDS IDENTIFIED AT [facility].
--- NOTE | 2021-12-20 09:40 | NUR ---
Spoke with Cash, no change. Awaiting placement to [facility] for surgery with Dr. Escobar.
--- NOTE | 2021-12-20 10:36 | NUR ---
PT VS DONE, I/O DONE, PT FACE WASHED, GLASSES PROVIDED, WATER OFFERED. PT REPOSITIONED VIA 2PA DWAYNE ASSIT. PT SUPINE WITH PILLOW UNDER RIGHT HIP. CALL LIGHT WITHIN REACH NO ASSISTANCE NEEDED AT THIS TIME.
--- NOTE | 2021-12-20 13:30 | NUR ---
ASSISTED PT WITH LUNCH, VS AND I/O DONE CALL LIGHT WITHIN REACH, NO ASSISTANCE NEEDED AT THIS TIME.
--- NOTE | 2021-12-20 15:00 | NUR ---
THIS RN PTS ROOM TO CHECK ON PT. PT DOING WELL AND ONLY NEEDS A SIP OF WATER. ALL ITEMS WITHIN REACH
--- NOTE | 2021-12-20 17:02 | NUR ---
PULLED PILLOW FROM PTS SIDE, PT LYING SUPINE
--- NOTE | 2021-12-20 18:00 | NUR ---
THIS RN IN PTS ROOM TO GIVE PT EVENING DOSE OF ABX. PT STATES HE IS DOING WELL AND REALLY ISN'T NEEDING ANYTHING AT THIS TIME
--- NOTE | 2021-12-20 19:30 | NUR ---
SHIFT REPORT RECEIVED FROM RYAN ZHENG. PT RESTING IN BED AND WATCHING TV. NO REQUESTS AT THIS TIME.
--- NOTE | 2021-12-20 21:12 | NUR ---
REPOSITIONED PT. ASSISTED IN EMPTYING PATIENT OSTOMY. PT. DEPEND CHANGED. SHANAE CARE DONE. FRESH WATER PROVIDED. CALL LIGHT LEFT WITHIN REACH. NO OTHER IMMEDIATE NEEDS AT THIS TIME.
--- NOTE | 2021-12-20 21:30 | NUR ---
ASSESSMENT COMPLETED. PT IS ALERT/ORIENTED, DENIES PAIN. LUNGS CLEAR, RA. HR REGULAR. BOWEL TONES ACTIVE. PT HAS GROSS MOVEMENT OF ARMS, NO MOVEMENT OR SENSATION TO LEGS RELATED TO PREVIOUS SPINAL INJURY. SUPRAPUBIC CATHETER DRAINING YELLOW URINE TO GRAVITY DRAIN, CATH CARE PROVIDED. OSTOMY APPLIANCE INTACT, RECENTLY EMPTIED BY SPINNER HAND. WOUND VAC IN PLACE TO BOTTOCKS/COCCYX, PRESSURE SET TO 120, SMALL AMOUNT OF RED DRAINAGE NOTED IN CANNISTER. PT HAS SCD'S AND HEEL PROTECTORS IN PLACE. PULSES PALPABLE, MILD EDEMA IN BLE. PT REQUESTS TO WAIT ON TAKING MELATONIN, WILL GIVE LATER. PT ASSISTED TO DRINK SOME WATER AND REPOSITIONED TO LEFT SIDE WITH PILLOW SUPPORT. NO FURTHER REQUESTS, CALL LIGHT WITHIN REACH.
--- NOTE | 2021-12-20 23:30 | NUR ---
PT READY FOR MELATONIN NOW, GIVEN. PT REPOSITIONED TO RIGHT SIDE WITH PILLOW SUPPORT. DISCUSSED CONTINUING TO REPOSITION PT Q2 HOURS, PT AGREES TO POC. PT ASSISTED TO DRINK SOME WATER, DENIES FURTHER NEEDS. WOUND VAC REMAINS TO SUCTION AT 120. CECILIA REMAINS PATENT. CALL LIGHT WITHIN REACH.
--- NOTE | 2021-12-21 00:27 | NUR ---
IN TO START IV MERREM. PICC REMAINS PATENT AND INTACT. NO FURTHER REQEUSTS.
--- NOTE | 2021-12-21 01:49 | NUR ---
PT REPOSITIONED TO LEFT SIDE WITH PILLOW SUPPORT. TV TURNED OFF PER REQUEST. PT DENIES FURTHER NEEDS.
--- NOTE | 2021-12-21 04:08 | NUR ---
PT REPOSITIONED TO RIGHT SIDE WITH PILLOW SUPPORT. DENIES FURTHER NEEDS.
--- NOTE | 2021-12-21 06:15 | NUR ---
PT WOKEN UP FOR VS AND SCHEDULED MEDS. ASSESSMENT COMPLETED AND UNCHANGED. PT REPOSITIONED TO LEFT SIDE WITH PILLOW SUPPORT. PT DENIES FURTHER NEEDS, CALL LIGHT WITHIN REACH.
--- NOTE | 2021-12-21 08:30 | NUR ---
REPORT RECEIVED FROM NIGHT RN AND PT. CARE RESUMED. PT. IS DROWSY AT THIS TIME BUT AWAKENS EASILY TO VOICE. ORIENTED TO ALL. PT. REPOSITIONED WITH PILLOWS. WOUND VAC DRESSING INTACT AND SET TO 120. SERISANGUINOUS DRAINAGE. WOUND VAC LIGHT IS GREEN. SCD AND HEEL PROTECTORS IN PLACE. BROOKS PATENT AND DRAINING YELLOW URINE. PICC LINE FLUSHES WELL AND ABX INFUSING. PT LEFT RESTING WITH CALL LIGHT IN REACH.
--- NOTE | 2021-12-21 09:30 | NUR ---
REPORT RECEIVED FROM NIGHT RN AND PT. CARE RESUMED. PT. REPORTS PAIN HAD IMPROVED AFTER IVP MORPHINE. ABDOMEN IS DISTENDED AND TENDER TO PALPATION. BOWEL TONES ACTIVE. STOMA IS EDEMATOUS AND SCANT AMOUNT OF PINK DRAINAGE IN OSTOMY BAG. GTUBE PATENT AND DRAINING GREEN FLUID WITH WHITE CHUNKS. TPN INFUSING IN PORT CATH. NEW IV PATENT AND FLUSHES. PT. LEFT RESTING WITH CALL LIGHT IN REACH.
--- NOTE | 2021-12-21 10:00 | NUR ---
No change. Pt awaiting transfer to [place].
--- NOTE | 2021-12-21 10:45 | NUR ---
PT. ASSISTED WITH REPOSITIONING AND DRINKING WATER. HE DENIES FURTHER NEEDS AT THIS TIME.
--- NOTE | 2021-12-21 10:50 | NUR ---
PT WAS PLEASANT AND CHEERFUL TO HAVE HIS FRUIT THIS MORNING. PT HAS BEEN IN AND OUT OF THE HOSPITAL A LOT AND IS WONDERING WHEN HE WILL BE TRANSFERED TO [place] WHERE HE WILL STAY FOR A LONGER DURATION
--- NOTE | 2021-12-21 12:42 | NUR ---
[facility]OV[facility] CALLED TO VERIFY THAT THE PATIENT WAS STILL HERE. SHE SAID ITS LOOKING MORE LIKE THE WEEKEND THAT THEY WILL HAVE A BED AVAILABLE.
--- NOTE | 2021-12-21 13:17 | NUR ---
PT ALERT, ORIENTED AND RESTING IN BED WITH TV ON. PT SEEMS COMFORTABLE, SAID HE WAS JUST WAITING FOR HIS NEXT STOP-[facility]. GAVE ENCOURAGEMENT PT SAID HE HAS BEEN THERE MANY TIMES.HAD GOOD DISCUSSION, GAVE BLESSING. WILL FOLLOW NEEDED
--- NOTE | 2021-12-21 15:45 | NUR ---
IN TO ROUND ON PT WHO IS RESTING IN BED, WATCHING TV. PT ROLLED TO ONE SIDE FOR WOUND VAC DRESSING ASSESSMENT, WHICH APPEARS INTACT, NO LEAKING NOTED. PT REPOSITIONED IN BED, PILLOWS PLACED UNDER L SIDE. PILLOW REPOSITIONED FOR COMFORT. PT GIVEN WATER, CALL LIGHT WITHIN REACH.
--- NOTE | 2021-12-21 17:00 | NUR ---
PT WAS LYING IN BED WATCHING TV SO I UNHOOKED HIS IV MEDICATION WHICH WAS DONE AND REPOSITIONED THE PATIENT ON TO HIS LEFT SIDE
--- NOTE | 2021-12-21 17:39 | NUR ---
PATIENT WAS AWAKE AND WATCHING TV. PATIENT WAS HUNGRY AND ATE HIS ENTIRE DINNER BEFORE LAYING THE BED BACK DOWN AND GOING BACK TO WATCHING TV
--- NOTE | 2021-12-21 21:50 | NUR ---
IN ROOM TO REPOSITION PT WITH RICKEY DAVIS. PT NOW HAS PILLOW UNDER R HIP. FRESH ICEWATER PROVIDED AND PT DENIES FURTHER NEEDS. CALL LIGHT IS CLOSE.
--- NOTE | 2021-12-21 23:30 | NUR ---
PT HAS HAD SOME BROTH. IS READY TO WIND DOWN AND TRY TO GET SOME SLEEP. REPOSITIONED TO THE R SIDE.
--- NOTE | 2021-12-22 07:16 | NUR ---
pt had an uneventful night.
--- NOTE | 2021-12-22 09:30 | NUR ---
Awaiting transfer. Denies needs.
--- NOTE | 2021-12-22 10:20 | NUR ---
REPORT RECEIVED FROM NIGHT RN AND PT. CARE RESUMED. PT. IS DROWSY BUT EASILY AWAKENS TO VOICE. ORIENTED TO ALL. ASSISTED WITH REPOSITIONING. WOUND VAC DRESSING CDI AND DRAINING SEROSANGUINOUS FLUID. SUCTION AT 120. SCD AND HEEL PROTECTORS IN PLACE. PICC LINE DRESSING INTACT AND PICC HAS BRISK BLOOD RETURN AND FLUSHES. PT. DENIES FURTHER NEEDS AND LEFT RESTING WITH CALL LIGHT IN REACH.
--- NOTE | 2021-12-22 10:52 | NUR ---
PT RESTING, ASKED IF I COULD COME BACK AGAIN. WILL FOLLOW
--- NOTE | 2021-12-22 11:30 | NUR ---
CBG COLLECTED. PATIENT RESTING BACK IN BED, APPEARS TO BE AWAKE. REPOSITIONED PAITENT OFF OF RIGHT SIDE WITH PILLOWS. PATIENT THEN SITTING UP, ASSISTANCE WITH EATING LUNCH BY CAYLA Dasilva ADMINISTERED MEDICATION PER DEC.
--- NOTE | 2021-12-22 12:57 | NUR ---
IN TO CHECK ON PT WHO IS SITTING UP IN BED, WATCHING TV. PER PT REQUEST, BED SHEETS REARRANGED TO COVER LEGS, FRESH WATER OBTAINED, AND ASSISTED PT WITH DRINKING SIPS. PT HAS NO OTHER REQUESTS AT THIS TIME.
--- NOTE | 2021-12-22 21:30 | NUR ---
PT REPOSITIONED. DRANK ENSURE. MOTHER HAD BEEN IN BUT HAS LEFT.
--- NOTE | 2021-12-22 23:30 | NUR ---
REPOSITIONED. ALL NEEDS MET. WOUND VAC PATENT.
--- NOTE | 2021-12-23 01:35 | NUR ---
PT REPOSITIONED. DENIES ANY NEEDS. HAD BEEN ASLEEP.
--- NOTE | 2021-12-23 06:50 | NUR ---
PT HAD AN UNEVENTFUL NIGHT. APPEARS TO HAVE SLEPT WELL. NO ISSUES WITH WOUND VAC THIS SHIFT..
--- NOTE | 2021-12-23 07:30 | NUR ---
THIS RN RECEIVED SHIFT REPORT FROM TRAVEL WALTER RN. PATIENT RESTING QUIETLY ON HIS LEFT SIDE, EYES CLOSED, RESPIRATIONS ARE REGULAR AND EVEN, CALL LIGHT IS IN REACH. PATIENT HAS NO CARE NEEDS AT THIS TIME.
--- NOTE | 2021-12-23 08:11 | NUR ---
RT COLLECTED RAPID COVID 19 SWAB WITHOUT COMPLICATIONS AT THIS TIME.
--- NOTE | 2021-12-23 09:23 | NUR ---
PATIENT STILL SLEEPY. AM MEDS GIVEN AND ASSESSMENT COMPLETE. PATIENT IS READY TO BE REPOSITIONED AND EAT BREAKFAST. THIS RN WILL FIND HELPING HANDS OR EARLY CHILDHOOD WORKER TO COME HELP PATIENT WITH THOSE THINGS. CALL LIGHT IN REACH.
--- NOTE | 2021-12-23 11:30 | NUR ---
HELPING HANDS NURSES AND PRINT INSPECTOR HELPED PATIENT TURN TO HIS RIGHT SIDE IN BED AND HELPED HIM EAT BREAKFAST. PATIENT RESTING QUIETLY IN BED NOW WATCHING TV AND DENIES ANY CARE NEEDS AT THIS TIME. CALL LIGHT IS IN REACH.
--- NOTE | 2021-12-23 13:05 | NUR ---
PATIENT IN BED WATCHING TV AT THIS TIME. VITALS AND I&O'S CHARTED. CALL LIGHT IN REACH. NO FURTHER NEEDS AT THIS TIME
--- NOTE | 2021-12-23 15:10 | NUR ---
PATIENT TURNED TO HIS RIGHT SIDE BY THIS RN AND ADOLFO DE LA TORRE. PATIENT DENIES ANY CARE NEEDS AT THIS TIME. CALL LIGHT IS IN REACH.
--- NOTE | 2021-12-23 17:43 | NUR ---
PATIENT TURNED TO HIS LEFT SIDE BY THIS RN AND ADOLFO DE LA TORRE. PATIENT REQUIRED NO EVENING INSULIN WITH DINNER. PATIENT IS FINISHED HIS DINNER, 1800 ANTIBIOTICS UP AND RUNNING AFTER PICC FLUSHED WITH 20MLS NS. PATIENT BOOSTED UP IN BED ALSO BY THIS RN AND ADOLFO DE LA TORRE. WOUND VAC IS FUNCTIONING PROPERLY AND HAS NOT HAD MUCH ADDITIONAL DRAINAGE OF SEROSANGUINOUS FLUID THIS SHIFT. PATIENT HAS NO OTHER CARE NEEDS AT THIS TIME. CALL LIGHT IS IN REACH.
--- NOTE | 2021-12-23 20:30 | NUR ---
PT TURNED TO R SIDE. SCD'S REMOVED TO GIVE THE SKIN A BREAK. WILL REAPPLY WHEN TURNED NEXT. SKIN CHECKED COMPLETED. NO ISSUES WITH WOUND VAC AT THIS TIME.
--- NOTE | 2021-12-23 21:25 | NUR ---
WITH RN IN ROOM, PT ASSISTED WITH REPOSITIONING IN BED, ACCU-CHECK DONE (see eMAR), NO FURTHER NEEDS
--- NOTE | 2021-12-23 21:40 | NUR ---
VSS, BROOKS EMPTIED, CATH CARE DONE, NO FURTHER NEEDS AT THIS TIME
--- NOTE | 2021-12-23 22:07 | NUR ---
WATCHING TV AND REQUESTED BROTH. NO OTHER NEEDS AT THIS TIME.
--- NOTE | 2021-12-23 22:30 | NUR ---
IN WITH RN TO ASSIST PT WITHREPOSITIONING IN BED, PT TO THE LEFT, (pillows to the right side), ORAL CARE PROVIDED FOR PT, SIPS OF WATER GIVEN, NO FURTHER NEEDS AT THIS TIME
--- NOTE | 2021-12-24 00:30 | NUR ---
PT REQUESTS REPOSITIONING. DENIES ANY OTHER NEEDS. WOUND VAC PATENT. SCD'S ON.
--- NOTE | 2021-12-24 03:20 | NUR ---
PT REPOSITIONED. STAYED DROWSY DURING THE PROCESS. PT HAS SPECIAL CUP THAT ALLOWS HIM TO USE CUP INDEPENDENTLY.
--- NOTE | 2021-12-24 05:52 | NUR ---
pt had an uneventful night. Wound vac had no issues. VSS.
--- NOTE | 2021-12-24 07:30 | NUR ---
SHIFT REPORT GIVEN TO THIS RN BY WALTER BHANDARI RN. PATIENT RESTING QUIETLY TURNED TO HIS LEFT AT THIS TIME. RESPIRATIONS ARE REGULAR AND EVEN, EYES ARE CLOSED, CALL LIGHT IS IN REACH. PATIENT HAS NO CARE NEEDS AT THIS TIME.
--- NOTE | 2021-12-24 07:52 | NUR ---
PT RESTING IN BED WITH EYES CLOSED. BLOOD GLUCOSE CHECKED. THIS AIR CONDITIONING SPECIALIST WILL CHECK BACK WITH BREAKFAST. WHITE BOARD UPDATED. NO FURTHER NEEDS AT THIS TIME.
--- NOTE | 2021-12-24 10:35 | NUR ---
THIS ARABIC LINGUIST AND ADOLFO BRITO IN ROOM TO REPOSITION PATIENT AND DO VITALS. ALL SHEETS UNDER PATIENT AND PATIENT GOWN WERE SATURATED, RYAN KULKARNI NOTIFIED AND IN TO CHECK BROOKS CATH. FULL BED BATH GIVEN AND CATH CARE DONE. EGG CRATE UNDER PATIENT ALSO WET AND NO MORE EGG CRATES AVALIABLE. PATIENTS BED WAS SWITCHED OUT WITH A NEWER BED AND BETTER MATRESS, PATIENT HOYERED TO NEW BED WITH ALL NEW LINENS. NEW GOWN PROVIDED. PATIENT NOW POSITIONED ON LEFT SIDE WITH PILLOWS UNDER RIGHT HIP. WILL CONTINUE TO REPOSITION PATIENT Q 2HRS. EGG CRATE BEING CLEANED AND DISINFECTED AND WILL BE PUT BACK UNDER PATIENT WHEN SARA AND DRY. CALL LIGHT IN REACH. NO FURTHER NEEDS AT THIS TIME.
--- NOTE | 2021-12-24 10:46 | NUR ---
AM ASSESSMENT COMPLETE AND MEDS GIVEN NOW THAT PATIENT IS SITUATED IN A NEW BED. WOUND VAC FUNCTIONING PROPERLY. PATIENT DENIES PAIN AND NAUSEA. PATIENT TOLERATED MOVING TO THE NEW BED WELL. NO OTHER CARE NEEDS AT THIS TIME. CALL LIGHT IS IN REACH.
--- NOTE | 2021-12-24 12:14 | NUR ---
THIS RN CCALLED AND LEFT A MESSAGE TO CALL MED/SURG BACK FOR LOW B/P ON THIS PATIENT. MANUAL B/P=80'S/50'S AND AUTO B/P IS RUNNING THE SAME. PATIENT IS NOT SYMPTOMATIC AND IS DOING FINE. AWATING RETURN PHONE CALL. INFORMED NUCLEAR FUELS RESEARCH ENGINEER AWAITING CALL.
--- NOTE | 2021-12-24 13:25 | NUR ---
CALLED BACK AND THIS RN TALKED WITH HIM ABOUT THE POSSIBLE LEAK FROM THE SUPRAPUBIC CATH THAT CAUSED THE BED CHANGE AND INFORMED HIM THE CATH WAS FUNCTIONING FINE NOW AND NO FURTHER ISSUES WITH IT. INFORMED HIM OF THE LOW BLOOD PRESSURES AND SAID TO JUST MONITOR FOR NOW THE MOVING OF THE PATIENT AND THE ISSUES WITH THE CATHETER MAY HAVE CAUSED THE ISSUE AND IT MAY TAKE SOME TIME TO RECOMPENSATE. NO OTHER DATA TO ENTER AT THIS TIME.
--- NOTE | 2021-12-24 16:25 | NUR ---
THIS RN IN TO TALK WITH PATIENT. AFTERNOON ASSESSMENT COMPLETE. INFORMED PATIENT ANGELICA AUSTIN HAS A BED AND WE ARE CALLING AROUND TO SEE IF ANYONE IS AVAILABLE TO TRANSPORT. INFORMED PATIENT I WOULD BE BACK TO TELL HIM SOON I HEARD ABOUT TRANSPORT. PATIENT VERBALIZED UNDERSTANDING.
--- NOTE | 2021-12-24 18:05 | NUR ---
PATIENT VISITING WITH HIS MOM AND FINISHING UP DINNER. PATIENT HAS NO CURRENT CARE NEEDS AT THIS TIME. WE ARE STILL AWAITING A CALL FROM [facility] ON A TIME FRAME FOR THEIR ARRIVAL TO TRANSPORT PATIENT TO [facility].
--- NOTE | 2021-12-24 19:56 | NUR ---
PT ALERT AND IN GOOD SPIRITS. DRANK AND ENSURE. ALL BELONGING GATHERED. AWAITING TRANSFER TO [facility] WHEN [facility] AVAILABLE.
--- NOTE | 2021-12-24 19:58 | NUR ---
DISCUSSED WITH HANS EVANS ABOUT WOUND VAC. CRISTINA DISCUSSED WITH BRIE CHANASSOCIATE SCHOOL PSYCHOLOGIST WHO ADVISED TO SEND WOUNC VAC WITH PATIENT AND INSTRUCT EMS TO RETURN WOUND VAC.
--- NOTE | 2021-12-24 21:45 | NUR ---
GAVE REPORT TO SN AQUILES AT [facility]. BOTH AQUILES AND EMS CREW AWARE THAT WOUND VAC NEEDS TO BE RETURNED. PT ALERT AT DISCHARGE. TOLERATED MOVING ONTO STRETCHER WELL. POWER PICC HEPARINIZED BEFORE DISCHARGE.
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
== END 2021-12-24 21:45 | disposition short-term general hospital (02) | DRG 592 ==
LOC: ED 15:38 → MS 15:39
PROVIDERS: ADMIT Colon & Rectal Surgery; ATTEND Colon & Rectal Surgery
PROC: 05HY33Z Insertion of Infusion Device into Upper Vein, Percutaneous Approach (ICD-10-PCS; principal; 2021-12-18 17:30)
DX: L89.44 Pressure ulcer of contiguous site of back, buttock and hip, stage 4 (principal); G82.50 Quadriplegia, unspecified; Z20.822 Contact with and (suspected) exposure to COVID-19; E66.9 Obesity, unspecified; E03.9 Hypothyroidism, unspecified; E11.65 Type 2 diabetes mellitus with hyperglycemia; Z68.36 Body mass index [BMI] 36.0-36.9, adult; Z87.891 Personal history of nicotine dependence; Z88.1 Allergy status to other antibiotic agents; Z79.84 Long term (current) use of oral hypoglycemic drugs; Z79.899 Other long term (current) drug therapy
CPT/HCPCS: 36415; 36569; 71045; 72197; 80048; 80053; 83735; 83880; 84100; 84134; 85025; 86140; 96365; 96375; 99284-25; A9270; A9577; C1751; C9113; C9803; G0378; J0692; J1650; J1815; J2185; J3370; J7060; J7121; U0003

== ENCOUNTER 2022-05-29 11:29 | Emergency (ER) | payer OTHER ==
[~2022-05-29] VITALS: Ht 177.8 cm; Wt 114.0 kg
[~2022-05-29 11:29] MED LIST changes: +CERTAVITE-ANTI1 EACH PO; +MELATONIN10 M2 PO; +OXYBUTYNIN CHLO10 MG PO
== END 2022-05-29 14:17 | disposition home or self-care (01) ==
LOC: ED 11:29
DX: Z46.6 Encounter for fitting and adjustment of urinary device (principal); G82.50 Quadriplegia, unspecified; E11.9 Type 2 diabetes mellitus without complications; Z87.891 Personal history of nicotine dependence; Z88.0 Allergy status to penicillin; Z88.1 Allergy status to other antibiotic agents; Z79.899 Other long term (current) drug therapy; Z87.440 Personal history of urinary (tract) infections
CPT/HCPCS: 81001

== ENCOUNTER 2023-12-10 12:53 | Emergency (ER) | payer OTHER ==
[~2023-12-10] VITALS: Ht 177.8 cm; Wt 113.8 kg
[2023-12-10] MEDS ORDERED: SODIUM CHLORIDE 0.9% 2,000 ML IV PRN (13:30)
[2023-12-10 13:36] LABS: HEMOGLOBIN 14.2 g/dL (12.0-18.0); MCH 24.5 (27-36); MCHC 32.3 g/dl (30-36); PLATELET COUNT 347 K/uL (140-440); RBC 5.79 M/ul (4.3-5.7); RDW 18.1 (10.5-15.0)
[2023-12-10] MEDS ORDERED: B-121000 MC2 PO (13:42)
[2023-12-10] MEDS ORDERED: OZEMPIC1 MG/0.71 SUB-Q (13:43)
[2023-12-10 13:49] LABS: ALBUMIN 3.2 g/dL (3.4-5.0); ALBUMIN/GLOBULIN RATIO 0.7 (1.1-2.4); ANION GAP 17.4 (7-21); BILIRUBIN, TOTAL 0.8 ng/dL (0.2-1.0); BUN/CREATININE RATIO 13.95 (6.0-28.6); CALCIUM 9.4 mg/dL (8.5-10.1); CREATININE, SERUM 0.86 mg/dL (0.70-1.30); MAGNESIUM 2.1 mg/dL (1.8-2.4); POTASSIUM 4.4 mmol/L (3.5-5.1); PROTEIN, TOTAL 7.8 g/dL (6.4-8.2)
[2023-12-10 13:52] LABS: BANDS, MANUAL DIFF 1; BASOPHILS, MANUAL DIFF 1; EOSINOPHILS, MANUAL DIFF 20; LYMPHOCYTES, MANUAL DIFF 28; MONOCYTES, MANUAL DIFF 5; NEUTROPHILS, MANUAL DIFF 45
[2023-12-10 19:12] VITALS: BP 103/65
[2023-12-12 15:55] LABS: C. DIFF TOXIN B GENE TCDB,PCR Not Detected (())
== END 2023-12-10 19:13 | disposition home or self-care (01) ==
LOC: ED 12:53
PROVIDERS: Emergency Medicine
DX: E86.0 Dehydration (principal); R19.7 Diarrhea, unspecified; D72.829 Elevated white blood cell count, unspecified; G82.50 Quadriplegia, unspecified; E11.9 Type 2 diabetes mellitus without complications; Z93.3 Colostomy status; Z99.3 Dependence on wheelchair; Z87.891 Personal history of nicotine dependence; Z88.1 Allergy status to other antibiotic agents; Z79.85 Long-term (current) use of injectable non-insulin antidiabetic drugs; Z79.899 Other long term (current) drug therapy
CPT/HCPCS: 36415; 74177; 80053; 83735; 85025; 87493; 96360; 96361; 99284-25; J7030; Q9967